=== PATIENT | male | born 1955 | race Caucasian/White ===

== ENCOUNTER 2020-02-16 09:00 | Outpatient (CLI) | payer MEDICARE, SELFPAY ==
--- NOTE | 2020-02-16 09:22 | NMCV_ITS ---
NM stefan perf SPECT r/s* [id number] Kike Rios Age: 64 Gender: M : 1955 Exam Date: 02/16/2020 09:22 Ordering Phys: Elsi Ortiz MD ([email or web address]) Technologist: DARLEEN Bauer Exam Location: [facility] Indications: CARDIOMYOPATHY STRESS TEST Please see separate stress test report in [facility] for full findings IMAGE PROTOCOL Rest/Stress 1 Lexiscan Day Radiopharmaceutical Dose (mCi) Administration Site Administered by Rest: Tc-99m 10.2 IV DARLEEN Zhang Sestamibi Stress:Tc-99m 32.5 IV DARLEEN Zhang Sestamibi Rest: 16-Feb-2020 60 Discovery 630 Stress: 16-Feb-2020 30 Discovery 630 0.4mg Lexiscan. Images obtained in supine and prone position. SPECT RESULTS Technical Quality: Excellent Raw Data Analysis: Normal Image Corrections: No attenuation or motion correction applied Summed Stress Score: 39 Summed Rest Score: 40 Summed Difference Score: 1 PERFUSION FINDINGS Large sized perfusion abnormality of moderate to severe severity of mid to apical anterior, septal, mid to apical lateral and apical nichols on rest and stress images. FUNCTIONAL RESULTS (calculated via Gated SPECT) Stress Image LV EF (%): 23 Stress EDV (mL):295 TID: 1.03 Stress ESV (mL):228 FUNCTIONAL FINDINGS: The left ventricle is dilated. Transient Ischemia Dilatation of 1. There is severely reduced left ventricular global systolic function. The left ventricular ejection fraction is severely reduced with a value of 23%. Severe hypokinesis of mid to apical anterior, entire septal, apical inferior, apical lateral and apical nichols. Severely increased end-diastolic and end-systolic volumes. IMPRESSIONS 1. Large sized fixed perfusion abnormality of moderate to severe severity of mid to apical anterior, septal, mid to apical lateral and apical nichols. This is suggestive of myocardial infarction or scarring in multivessel territory (left anterior descending, circumflex and right coronary artery). 2. The left ventricular ejection fraction is severely reduced with a value of 23%. 3. Severe hypokinesis of mid to apical anterior, entire septal, apical inferior, apical lateral and apical nichols. 4. No coronary ischemia based on the study. 5. These findings are compatible with an ischemic cardiomyopathy. Elsi Ortiz MD (Electronically Signed) Final Date: 16 Feb 2020 13:51 S
--- NOTE | 2020-02-16 09:22 | ECG_ITS ---
NAME OF STUDY: LEXISCAN SESTAMIBI STRESS TEST INDICATION: Chest Pain PROCEDURE: At the baseline, the blood pressure was 103/68 mmHg, oxygen saturation 93% with a heart rate of 49 bpm. The electrocardiogram showed sinus bradycardia, normal axis and intraventricular conduction delay. ST and T wave changes in anterior leads. The Lexiscan was infused over a period of 20 seconds. A total of 0.4 milligrams of Lexiscan was infused. The stress phase was continued for a total of 5 minutes. Heart rate at the end of the stress phase was 71 bpm, oxygen saturation 98% with a blood pressure 110/65 mmHg. The EKG at the peak infusion revealed sinus rhythm with no significant ST-T wave changes. Sestamibi was injected 20 seconds after the Lexiscan infusion. Blood pressure at the end of the recovery phase was 118/72 mmHg, oxygen saturation 96% with a heart rate of 71 beats per minute. CONCLUSION: 1. No significant EKG changes with the LexiScan infusion. 2. No LexiScan induced chest pain or cardiac arrhythmia. 3. Normal blood pressure and heart rate response. 4. Sestamibi/sestamibi perfusion scan pending; see separate report. Electronically Signed On 02-16-2020 13:57:40 CDT by Elsi Ortiz M.D. [id number]
[2020-02-16 09:37] VITALS: BMI 30.6
[2020-02-16] MEDS: regadenoson 0.4 Mg/5 ml Syringe IVP (10:47)
--- NOTE | 2020-02-16 10:50 | SUR.PREOP ---
Patient reports no pain or discomfort prior to the start of the procedure.
[2020-02-16 10:57] VITALS: BP 110/65; PULSE 69
== END 2020-02-16 09:01 | disposition home or self-care (01) ==
PROVIDERS: PCP Family Medicine; Visit Provider Internal Medicine Cardiovascular Disease
DX: I42.9 Cardiomyopathy, unspecified (principal); R06.09 Other forms of dyspnea
CPT/HCPCS: 78452; 93017; A9500; J2785

== ENCOUNTER 2020-03-27 19:02 | Emergency (ER) | payer MEDICARE, SELFPAY ==
--- NOTE | 2020-03-27 19:13 | ECG_ITS ---
[facility] ED Test Date: 2020-03-27 Pat Name: Kike Rios Department: Room: Gender: 0 Dialysis Tech: : 1955 Requested By: Jersey Peter Order Number: [id number] Alka MD: Elsi Ortiz M.D. Measurements Intervals [place] Rate: 67 P: 55 FL: 169 QRS: 57 QRSD: 101 T: 36 QT: 380 QTc: 402 Interpretive Statements SINUS RHYTHM POSSIBLE LEFT ATRIAL ENLARGEMENT [-0.1mV P WAVE IN V1/V2] MODERATE T-WAVE ABNORMALITY, CONSIDER ANTEROLATERAL ISCHEMIA Compared to ECG 11/15/2017 06:05:34 Sinus bradycardia no longer present Ventricular premature complex(es) no longer present Intraventricular conduction delay no longer present T-wave abnormality still present Possible ischemia still present Electronically Signed On 03-29-2020 13:52:17 CDT by Elsi Ortiz M.D. [id number]
--- NOTE | 2020-03-27 19:13 | XR_ITS ---
WS: [id number] XR chest 1V portable [id number] REASON FOR EXAM: cp FINDINGS: Borderline cardiomegaly is again noted. Chest was compared to November 14, 2017. Interstitia l findings are again noted similar to the previous exam and chronic emphysematous changes. The hilum and apices are normal. XR/XR chest 1V portable [id number] IMPRESSION: Chronic emphysematous changes with interstitial findings. Borderline cardiomegaly.
[2020-03-27 19:21] VITALS: BP 105/67; PULSE 63; RESP 20; TEMP 36.9; O2SAT 93; BMI 30.6
[2020-03-27 19:32] LABS: Basophils # 0.2 10^3/uL (0.0-0.1); Basophils % 1.1 %; Hematocrit 46.3 % (42.0-52.0); Mean Corpuscular Volume 92.8 fL (80-94); Nucleated Red Blood Cells % 0 %; Red Blood Count 4.99 10^6/uL (4.1-5.3)
[2020-03-27 19:35] LABS: Eosinophils # 0.5 10^3/uL (0.0-0.8); Eosinophils % 3.6 %; Hemoglobin 14.9 g/dL (11.7-16.6); Lymphocytes # 3.4 10^3/uL (0.8-4.8); Lymphocytes % 23.7 %; Mean Corpuscular HGB Conc 32.2 g/dL (30.0-36.0); Mean Corpuscular Hemoglobin 29.9 pg (28.0-34.0); Mean Platelet Volume 13.3 fL (7.4-10.4); Monocytes # 0.9 10^3/uL (0.2-0.9); Monocytes % 6.4 %; Neutrophils # 9.3 10^3/uL (1.8-7.7); Neutrophils % 64.9 %; Platelet Count 342 10^3/cmm (130-400); Red Cell Distribution Width 14.5 % (12.1-15.1); White Blood Count 14.3 10^3/uL (4.0-10.0)
--- NOTE | 2020-03-27 19:38 | ED_ITS ---
HPI - Chest Pain General: Chief Complaint: Chest Pain Stated Complaint: CHEST PAIN Time Seen by Provider: 03/27/20 19:07 Source: patient and EMS Mode of arrival: EMS Limitations: no limitations History of Present Illness: HPI narrative: 64-year-old male has a history of irregular heart rhythms in the past and is scheduled for an AICD next week. Patient states he was outside working today and started getting chest pains along with palpitations. When EMS arrived patient appears to be in V. fib tach and converted after IV started. Patient states that after that his symptoms resolved and he is back to feeling normal. He has no complaints at this time. Denies any worsening or improving factors. Associated symptoms: Reports palpitations; Deny abdominal pain, dyspnea, fever(s), nausea or vomiting Review of Systems Const: Denies: fever(s), chills, body aches or change in appetite Eyes: Denies: blurry vision or eye discomfort ENMT: Denies: throat pain or dental pain Card: Reports: chest pain and palpitations Resp: Denies: dyspnea GI: Denies: abdominal pain, nausea, vomiting or diarrhea : Denies: dysuria Musc: Denies: neck pain or back pain Skin/Breast: Denies: rash Neuro: Denies: headache(s) Psych: Denies: depression Mc/Lymph: Denies: easy bruising All/Imm: Denies: urticaria PFSH ED PFSH: Medical History (Updated 03/27/20 @ 22:02 by Jersey Peter MD) CAD (coronary artery disease) Cardiomyopathy HTN (hypertension) Hyperlipidemia Tachycardia Family History Mother Seizure Social History Smoking and tobacco status: current every day smoker Alcohol intake: never Physical Exam Const: COMMON NORMALS: no acute distress, patient oriented x3 and healthy appearing HENMT: COMMON NORMALS: normocephalic and atraumatic HEAD & SCALP: normocephalic and atraumatic Eye: COMMON NORMALS: Equal, round and reactive pupils present and EOMs intact bilaterally PUPIL: Yes Equal, round and reactive pupils present Neck/C-Spine: COMMON NORMALS: full ROM and supple Chest: COMMONS NORMALS: normal inspection of the chest and normal palpation of entire chest wall Resp: COMMON NORMALS: normal respiratory effort, No retractions, No use of accessory muscles and clear to auscultation bilaterally AUSCULTATION: clear to auscultation bilaterally Cardio: COMMON NORMALS: regular rate, regular rhythm and No murmurs present (Cardio) RATE: regular rate RHYTHM: regular rhythm GI: COMMON NORMALS: Normal to inspection, nondistended, normoactive bowel sounds present, Soft to palpation, non-tender and no masses PALPATION: Yes Soft to palpation Extremity: COMMON NORMALS: normal to inspection and full ROM Neuro: COMMON NORMALS: patient oriented x3, moves all extremities and no focal motor deficits Psych: COMMON NORMALS: mental status grossly normal, Normal thought process present and cooperative THOUGHT PROCESS: Normal thought process present Skin: COMMON NORMALS: no rashes or lesions noted and no wounds GENERAL SKIN EXAM: no rashes or lesions noted Course Vital Signs: Vital signs: Vital Signs Temperature 98.5 F 03/27/20 19:21 Pulse Rate 63 03/27/20 19:21 Respiratory Rate 20 H 03/27/20 19:21 Blood Pressure 105/67 03/27/20 19:21 Pulse Oximetry 93 03/27/20 19:21 MDM - Chest Pain MDM Narrative: Medical decision making narrative: Patient presents here with V. tach noted on rhythm strip from medic also has an elevated troponin for second troponin concerning for NSTEMI. I discussed all this with patient and strongly recommended admission. Patient's olap developer Dr. Samayoa also spoke to patient here. 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 Patient's been pain-free here and rhythm is been normal. He is scheduled for an AICD next we ek. Patient signed out AGAINST MEDICAL ADVICE and I informed him if he has any more pain or changes his mind he is to return. He understands and agrees to this plan. Lab Data: Labs: Lab Results 03/27/20 03/27/20 03/27/20 Range/Units 18:00 18:00 18:00 WBC 14.3 H (4.0-10.0) 10^3/ uL RBC 4.99 (4.1-5.3) 10^6/u L Hgb 14.9 (11.7-16.6) g/dL Hct 46.3 (42.0-52.0) % MCV 92.8 (80-94) fL MCH 29.9 (28.0-34.0) pg MCHC 32.2 (30.0-36.0) g/dL RDW 14.5 (12.1-15.1) % Plt Count 342 (130-400) 10^3/c mm MPV 13.3 H (7.4-10.4) fL Neut % (Auto) 64.9 % Lymph % (Auto) 23.7 % [place] % (Auto) 6.4 % Eos % (Auto) 3.6 % Baso % (Auto) 1.1 % Neut # (Auto) 9.3 H (1.8-7.7) 10^3/u L Lymph # (Auto) 3.4 (0.8-4.8) 10^3/u L [place] # (Auto) 0.9 (0.2-0.9) 10^3/u L Eos # (Auto) 0.5 (0.0-0.8) 10^3/u L Baso # (Auto) 0.2 H (0.0-0.1) 10^3/u L Nucleated RBC % (a uto) 0 % Nucleated RBCs # 0.0 /100WBC Sodium 135 L (136-145) mmol/L Potassium 3.9 (3.5-5.1) mmol/L Chloride 102 (98-107) mmol/L Carbon Dioxide 18 L (22-29) mmol/L Anion Gap 18.9 (5-19) BUN 19 (8-23) mg/dL Creatinine 1.5 H (0.7-1.2) mg/dL GFR Calculation 46.8 L (90-130) mL/min Glucose 111 (65-115) mg/dL Calculated Osmolal ity 277 L (285-295) mOsm/k g Calcium 9.8 (8.5-10.5) mg/dL Total Bilirubin 0.6 (0.15-1.2) mg/dL AST 19 (0-40) U/L ALT 15 (0-41) U/L Alkaline Phosphata se 38 L (40-130) IU/L Troponin T Baselin e 10 (0-15) ng/L Troponin T 120 Min kenaitze (0-15) ng/L Delta Troponin T (0-10) ABS# Total Protein 7.3 (6.6-8.7) g/dL Albumin 4.5 (3.5-5.2) g/dL Globulin 2.8 (1.3-4.6) g/dL 03/27/20 Range/Units 20:47 WBC (4.0-10.0) 10^3/ uL RBC (4.1-5.3) 10^6/u L Hgb (11.7-16.6) g/dL Hct (42.0-52.0) % MCV (80-94) fL MCH (28.0-34.0) pg MCHC (30.0-36.0) g/dL RDW (12.1-15.1) % Plt Count (130-400) 10^3/c mm MPV (7.4-10.4) fL Neut % (Auto) % Lymph % (Auto) % [place] % (Auto) % Eos % (Auto) % Baso % (Auto) % Neut # (Auto) (1.8-7.7) 10^3/u L Lymph # (Auto) (0.8-4.8) 10^3/u L [place] # (Auto) (0.2-0.9) 10^3/u L Eos # (Auto) (0.0-0.8) 10^3/u L Baso # (Auto) (0.0-0.1) 10^3/u L Nucleated RBC % (a uto) % Nucleated RBCs # /100WBC Sodium (136-145) mmol/L Potassium (3.5-5.1) mmol/L Chloride (98-107) mmol/L Carbon Dioxide (22-29) mmol/L Anion Gap (5-19) BUN (8-23) mg/dL Creatinine (0.7-1.2) mg/dL GFR Calculation (90-130) mL/min Glucose (65-115) mg/dL Calculated Osmolal ity (285-295) mOsm/k g Calcium (8.5-10.5) mg/dL Total Bilirubin (0.15-1.2) mg/dL AST (0-40) U/L ALT (0-41) U/L Alkaline Phosphata se (40-130) IU/L Troponin T Baselin e (0-15) ng/L Troponin T 120 Min kenaitze 26.63 H (0-15) ng/L Delta Troponin T 16.63 H* (0-10) ABS# Total Protein (6.6-8.7) g/dL Albumin (3.5-5.2) g/dL Globulin (1.3-4.6) g/dL EKG Data^: EKG 1: Attestation: I personally reviewed and interpreted this EKG as follows: EKG interpretation date: 03/27/20 EKG interpretation time: 19:13 Interpretation: nsr hr [address] elevation t wave inversion v3-v5 qrs 101 qtc 395 Discharge Plan Discharge Patient Disposition: Left Against Medical Advice Clinical Impression: Chest pain, Ventricular tachycardia Condition: Stable Prescriptions: No Action clonazepam 1 mg tablet 1 mg PO BID RF: 0 buspirone 15 mg tablet 15 mg PO BID RF: 0 fenofibrate nanocrystallized 145 mg tablet 145 mg PO DAILY RF: 0 esomeprazole magnesium 40 mg capsule,delayed release(DR/EC) 40 mg PO DAILY RF: 0 aspirin [Aspir-Low] 81 mg tablet,delayed release (DR/EC) 81 mg PO DAILY RF: 0 atorvastatin 80 mg tablet 80 mg PO DAILY Qty: 30 RF: 3 clopidogrel 75 mg tablet 75 mg PO DAILY Qty: 30 RF: 3 isosorbide mononitrate 60 mg Tablet Extended Release 24 Hr 60 mg PO QAM RF: 0 metoprolol tartrate 50 mg tablet 25 mg PO BID RF: 0 Referrals: Cesario Mccoy [Primary Care Provider] - Discharge Diet: Advance as tolerated Discharge Activity: Resume usual activity Patient Instructions: Chest Pain (ED) Coding Level of Care Code ED [employer] Fwd Exam Comprehensive
[2020-03-27 19:53] LABS: Alanine Aminotransferase 15 U/L (0-41); Albumin Level 4.5 g/dL (3.5-5.2); Alkaline Phosphatase 38 IU/L (40-130); Anion Gap 18.9 (5-19); Aspartate Amino Transferase 19 U/L (0-40); Blood Urea Nitrogen 19 mg/dL (8-23); Calcium 9.8 mg/dL (8.5-10.5); Carbon Dioxide 18 mmol/L (22-29); Chloride 102 mmol/L (98-107); Globulin 2.8 g/dL (1.3-4.6); Glomerular Filtration Rate 46.8 mL/min (90-130); Glucose 111 mg/dL (65-115); Osmolality Calculated 277 mOsm/kg (285-295); Potassium 3.9 mmol/L (3.5-5.1); Sodium 135 mmol/L (136-145); Total Bilirubin 0.6 mg/dL (0.15-1.2); Total Protein 7.3 g/dL (6.6-8.7)
[2020-03-27 19:55] LABS: Troponin(5th) Baseline 10 ng/L (0-15)
[2020-03-27 20:01] LABS: Slide Review Slide Review Perform
--- NOTE | 2020-03-27 21:13 | ECG_ITS ---
[facility] ED Test Date: 2020-03-27 Pat Name: Kike Rios Department: Room: Gender: 0 Manager Hospital: : 1955 Requested By: Jersey Peter Order Number: [id number] Alka MD: Elsi Ortiz M.D. Measurements Intervals [place] Rate: 57 P: 56 PA: 181 QRS: 60 QRSD: 91 T: 79 QT: 412 QTc: 403 Interpretive Statements SINUS BRADYCARDIA ST DEVIATION AND MODERATE T-WAVE ABNORMALITY, CONSIDER ANTERIOR ISCHEMIA [-0.1+ mV T WAVE IN V3/V4] Compared to ECG 11/15/2017 06:05:34 Ventricular premature complex(es) no longer present Intraventricular conduction delay no longer present T-wave abnormality still present Possible ischemia still present Electronically Signed On 03-29-2020 14:18:14 CDT by Elsi Ortiz M.D. [id number]
[2020-03-27 21:34] LABS: Troponin 5 2HR 26.63 ng/L (0-15)
[2020-03-27 21:35] LABS: Troponin 5 2HR Delta 16.63 ABS# (0-10)
--- NOTE | 2020-03-27 22:16 | PC.NURSE ---
During pt rounding, pt states he wants to go home . notified, confirmed pt will be leaving AMA. Pt informed his troponin levels have increased and the significance of elevated levels leading up to disability or . Pt A&Ox3. Acknowledged understanding of risks of leaving vs staying. AMA form signed by pt and witnessed by staff. IV's removed. Pt ambulated out of dept without further difficulties or complaints.
== END 2020-03-27 22:31 | disposition left against medical advice (07) ==
PROVIDERS: Emergency Provider Emergency Medicine; PCP Family Medicine
DX: R07.9 Chest pain, unspecified (principal); I47.2 Ventricular tachycardia; Z79.02 Long term (current) use of antithrombotics/antiplatelets; Z79.82 Long term (current) use of aspirin; Z53.21 Procedure and treatment not carried out due to patient leaving prior to being seen by health care provider; I25.10 Atherosclerotic heart disease of native coronary artery without angina pectoris; I10 Essential (primary) hypertension; E78.5 Hyperlipidemia, unspecified; F17.210 Nicotine dependence, cigarettes, uncomplicated
CPT/HCPCS: 12345; 36415; 71045; 80053; 84484; 85025; 93005; 99282; 99284

== ENCOUNTER 2020-04-10 09:47 | Observation (INO) | payer MEDICARE, SELFPAY ==
[2020-04-07 13:05] VITALS: BMI 29.9
[2020-04-10] VITALS (12 sets, daily range): BP systolic 96–131; BP diastolic 66–81; PULSE 55–65; RESP 14–21; TEMP 36.2–37; O2SAT 92–99
--- NOTE | 2020-04-10 | XRR_ITS ---
PROCEDURE INFORMATION: Exam: XR Chest, 1 View Exam date and time: 04/10/2020 4:39 PM Age: 64 years old Clinical indication: Condition or disease; Cardiac pacemaker adjustment and management; Prior surgery; Surgery date: Post-operative (0-2 days); Surgery type: Pacer insertion; Additional info: Post pacer insertion TECHNIQUE: Imaging protocol: XR of the chest Views: 1 view. COMPARISON: CR XR chest 1V portable [id number] 04/10/2020 8:11 AM FINDINGS: Tubes, catheters and devices: Dual lead left subclavian pacemaker in place. Lungs: Minor atelectasis both lung bases. Pleural space: Unremarkable. No pleural effusion. No pneumothorax. Heart/Mediastinum: Unremarkable. No cardiomegaly. Bones/joints: Unremarkable. XR/XR chest 1V portable [id number] IMPRESSION: Left subclavian pacemaker in place. Minor atelectasis both lung bases.
--- NOTE | 2020-04-10 | SCC_ITS ---
Procedure Done: Dual-lead defibrillator implantation 62.9 seconds of fluoroscopic guidance, for a cumulative dose of 14.90 mGy, was provided to Dr. Wang by the radiology department. C-arm images of the chest were saved for the patient's permanent record. M[facility] ST[facility] CHILDREN'S HOSPITALRenate
--- NOTE | 2020-04-10 06:31 | P.HP_ITS ---
Providers/Chief Complaint Admitting Physician: Kathleen Primary Care Provider: Cesario Mccoy History of Present Illness Kike Rios is a 64 year old male with known severe cardiomyopathy with ejection fraction of 23%. He has a past history of coronary artery disease noted history of chronic smoking and emphysema. He has been previously evaluated by Dr. Ortiz and ICD recommendation has been made. He was seen in the emergency department on March 27 after developing chest pain and near syncope at home and transferred by EMS. He was found to be in ventricular fib/tachycardia and converted spontaneously. He refused admission and left AGAINST MEDICAL ADVICE. We plan for AICD implantation today. Review of Systems Const: Denies: fever(s), chills, change in appetite, change in weight, fatigue or night sweats Eyes: Denies: change in vision or blurry vision ENMT: Denies: odynophagia or hoarseness Card: Reports: chest pain, palpitations, irregular heart rhythm and dyspnea on exertion; Denies: edema Resp: Reports: dyspnea; Denies: productive cough GI: Denies: abdominal pain, nausea, vomiting, dysphagia, heartburn or change in bowel habits : Denies: difficulty urinating, dysuria, urinary frequency, urinary urgency or urinary hesitancy Musc: Denies: extremity pain or extremity swelling Skin/Breast: Denies: rash Neuro: Denies: headache(s), numbness in extremities, weakness in extremities or sensory changes Psych: Denies: anxiety, depression or change in appetite Endo: Denies: polyuria, polydipsia or cold intolerance Mc/Lymph: Denies: easy bruising, easy bleeding, petechiae or enlarged lymph nodes Medications/Allergies Home Medications Medication Instructions Recorded Confirmed Last Taken Type aspirin 81 mg tablet,delayed 81 mg PO DAILY 12/30/19 04/07/20 04/05/20 History release buspirone 15 mg tablet 15 mg PO BID 12/30/19 04/07/20 Unknown History clonazepam 1 mg tablet 1 mg PO BID 12/30/19 04/07/20 Unknown History esomeprazole magnesium 40 mg 40 mg PO DAILY 12/30/19 04/07/20 Unknown History capsule,delayed release fenofibrate nanocrystallized 145 145 mg PO DAILY 12/30/19 04/07/20 Unknown History mg tablet atorvastatin 80 mg tablet 80 mg PO DAILY #30 tab 12/31/19 04/07/20 Unknown Rx clopidogrel 75 mg tablet 75 mg PO DAILY #30 tab 12/31/19 04/07/20 04/04/20 Rx isosorbide mononitrate 60 mg PO QAM 03/27/20 04/07/20 Unknown History metoprolol tartrate 25 mg PO BID 03/27/20 04/07/20 Unknown History Allergies Allergy/AdvReac Type Severity Reaction Status Date / Time influenza virus vaccine, Allergy u Verified 12/30/19 14:48 specific morphine Allergy Unknown Verified 04/07/20 13:03 Penicillins Allergy Unknown Verified 12/30/19 14:48 codeine AdvReac ADR-Chest Verified 12/30/19 14:48 Pain PFSH Acute PFSH: Medical History (Updated 04/10/20 @ 06:35 by Stephan Wang MD) CAD (coronary artery disease) Cardiomyopathy HTN (hypertension) Hyperlipidemia Ischemic cardiomyopathy Tachycardia Family History Mother Seizure Social History Smoking and tobacco status: current every day smoker Alcohol intake: never Physical Exam Const: COMMON NORMALS: patient oriented x3 and alert ORIENTATION/CONSCIOUSNESS: Yes oriented to person, Yes oriented to place and Yes oriented to time HENMT: COMMON NORMALS: normocephalic HEAD & SCALP: normocephalic and cranial bruits Neck/C-Spine: COMMON NORMALS: full ROM, supple, no JVD and No carotid bruits GENERAL: Yes trachea midline CERVICAL SPINE: Yes cervical ROM normal Chest: COMMONS NORMALS: normal inspection of the chest and normal palpation of entire chest wall Resp: COMMON NORMALS: normal respiratory effort, No use of accessory muscles, clear to auscultation bilaterally and percussion normal EFFORT & INSPECTION: Yes able to speak in complete sentences and Yes symmetric chest movement AUSCULTATION: clear to auscultation bilaterally PERCUSSION: percussion normal Cardio: COMMON NORMALS: no JVD, regular rate, regular rhythm, S1 normal heart sound present, S2 normal heart sound present, No gallops present (Cardio), No murmurs present (Cardio) and No rub (Cardio) JUGULAR VENOUS DISTENTION: no JVD RATE: regular rate RHYTHM: regular rhythm HEART SOUNDS: S1 normal heart sound present and S2 normal heart sound present PERIPHERAL PULSES: radial pulses present positive bilateral 2+ Extremity: COMMON NORMALS: no clubbing, cyanosis or edema Neuro: COMMON NORMALS: patient oriented x3, no focal motor deficits and no sensory deficits noted SENSORIUM/ORIENTATION: Yes alert, Yes oriented to person, Yes oriented to place and Yes oriented to time GAIT: Yes Normal gait present A&P Assessment and plan (1) Ischemic cardiomyopathy: 64-year-old gentleman with severe ischemic cardiomyopathy and ejection fraction of 23% as well as documented ventricular arrhythmia. AICD implantation been recommended. Rationale was carefully discussed. Details and risks of the procedure were carefully and frankly discussed. Risks reviewed include the possibility of , stroke, heart attack, major bleeding, infection which may require explantation of the device, pneumonia, pneumothorax requiring chest tube, migration of the leads requiring early or delayed revision, organ failure, failure to benefit, prolonged hospital stay, pain after the procedure, need for further procedures, inability to complete the procedure, and possible need for long-term followup. All questions were answered. Appropriate consents have been provided for review and signature. Status: Acute Attestations Medical Necessity Statement*: Severe ischemic cardiomyopathy with ventricular arrhythmias Time Spent in Patient Care: 16 - 35 minutes Coding Level of Care Code New Pt Acute Optical Laboratory Technician for Chg Fwd Patient Type New History Detailed Exam Comprehensive Medical Decision Making Moderate Complexity Diagnoses Ischemic cardiomyopathy I25.5 Time Spent (min) 35
--- NOTE | 2020-04-10 07:27 | XR_ITS ---
WS: [id number] CHEST XRAY TECHNIQUE: Portable chest. CLINICAL INFORMATION: Preop for AICD implantation COMPARISON: March 27, 2020 FINDINGS: Heart: Cardiomegaly. Lungs: Chronic emphysematous changes. No acute pulmonary infiltrates. No focal pneumonia. Bones: Normal visualized bony structures. XR/XR chest 1V portable [id number] IMPRESSION: Cardiomegaly. Otherwise unremarkable for preoperative purposes.
--- NOTE | 2020-04-10 07:27 | SC_ITS ---
WS: [id number] INTRAOPERATIVE TECHNIQUE: 3 Spot fluoroscopic images for intraoperative purposes. FLUOROSCOPY TIME: 62.9 seconds CLINICAL INFORMATION: AICD implantation COMPARISON: None. FINDINGS: Interval placement of AICD. No visualized pneumothorax. SC/C-arm FL for Pacemaker IMPRESSION: Images obtained for intraoperative purposes.
--- NOTE | 2020-04-10 08:03 | P.ANESASSM_ITS ---
Pre-Anesthetic Assessment Pre-Anesthetic Assessment: Height/Weight: Height 1.91 m Weight 108.862 kg Temp Pulse Resp BP Pulse Ox 97.2 F L 55 L 16 115/76 92 04/10/20 07:36 04/10/20 07:36 04/10/20 07:36 04/10/20 07:36 04/10/20 07:36 Preop Diagnosis: Cardiomyopathy Proposed Procedure: Operation Date: 04/10/20 08:40 Proposed Procedures p Defibrillator Placement(Not Applicable) - Stephan Wang MD Familial anesthetic complications: None Was Beta Tony taken within 24 hours: Yes Last intake: Intake Last Liquid Date 04/09/20 Last Liquid Time 19:00 Last Solid Date 04/09/20 Last Solid Time 19:00 Social: Social History: Tobacco and No alcohol Exam: Pre-Anes Outpt Exam: alert, oriented x 3, clear to auscultation bilaterally and regular rate & rhythm Airway: Cervical ROM: WNL MP: 4 Dentition: False Pulmonary: Comments: chronic bronchitis CV/HEM: CV/HEM: Afib, Arrythmia (Plavix - last took friday), CAD, HTN and RI Comments: Ischemic cardiomyopathy : : None reported Hepatic: Hepatic: None reported Metabolic: Metabolic: Hyperlipidemia Musc/skel: Musc/skel: None reported Neuropsych: Neuropsych: TIA (years ago (R paralysis and aphasia)) Anesthetic Plan: ASA status: 4 Anesthesia: MAC Risk of > 500 ml blood l oss (7ml/kg in children): No PFSH Anesthesia PFSH: Medical History (Updated 04/10/20 @ 06:35 by Stephan Wang MD) CAD (coronary artery disease) Cardiomyopathy HTN (hypertension) Hyperlipidemia Ischemic cardiomyopathy Tachycardia Family History Mother Seizure Social History Smoking and tobacco status: current every day smoker Alcohol intake: never Data Anesthesia Cardiac Studies: No Data to Display
[2020-04-10] MEDS: sodium chloride 0.9% 1,000 ML 30 ML IV (08:19)
[2020-04-10 08:23] LABS: Add Urine Microscopic? NO
[2020-04-10] MEDS: vancomycin 1,000 MG in sodium chloride 0.9% 250 ML 250 MG IV (08:23)
[2020-04-10 08:34] LABS: Basophils # 0.1 10^3/uL (0.0-0.1); Basophils % 0.8 %; Eosinophils # 0.6 10^3/uL (0.0-0.8); Eosinophils % 4.8 %; Hematocrit 44.9 % (42.0-52.0); Hemoglobin 14.8 g/dL (11.7-16.6); Lymphocytes # 3.2 10^3/uL (0.8-4.8); Lymphocytes % 26.9 %; Mean Corpuscular Hemoglobin 30.5 pg (28.0-34.0); Mean Corpuscular Volume 92.6 fL (80-94); Mean Platelet Volume 12.7 fL (7.4-10.4); Monocytes # 0.9 10^3/uL (0.2-0.9); Monocytes % 7.7 %; Neutrophils % 59.5 %; Nucleated Red Blood Cells % 0 %; Platelet Count 290 10^3/cmm (130-400); Red Blood Count 4.85 10^6/uL (4.1-5.3); White Blood Count 11.8 10^3/uL (4.0-10.0)
[2020-04-10 08:36] LABS: INR 1.02 (0.8-1.2)
[2020-04-10 08:43] LABS: Anion Gap 17.2 (5-19); Blood Urea Nitrogen 21 mg/dL (8-23); Calcium 9.8 mg/dL (8.5-10.5); Carbon Dioxide 21 mmol/L (22-29); Chloride 104 mmol/L (98-107); Glomerular Filtration Rate 55.2 mL/min (90-130); Glucose 111 mg/dL (65-115); Osmolality Calculated 283 mOsm/kg (285-295); Potassium 4.2 mmol/L (3.5-5.1); Sodium 138 mmol/L (136-145)
[2020-04-10] MEDS: vancomycin 1,000 MG SDV 1000 MG IRRIGATION (08:56)
[2020-04-10] MEDS: lidocaine 1% INJ 20 mL SUBCUT (08:56)
[2020-04-10 09:18] LABS: Bilirubin Urine Neg (NEGATIVE); Blood Urine Neg (Negative); Glucose Urine UA Norm (Normal); Ketones Urine Negative (Negative); Leukocyte Esterase Urine Negative (Negative); Nitrate Urine Negative (Negative); Protein Urine Neg (Negative); Urine Appearance Clear (CLEAR); Urine Color Straw (Yellow); Urobilinogen Urine Norm (Negative); pH Urine 5 (5-7)
--- NOTE | 2020-04-10 10:10 | PM.OP ---
Operative Report Date of procedure: April 10, 2020 Pre-op Diagnosis: Cardiomyopathy Post-op diagnosis: same Procedure Done: Dual-lead defibrillator implantation Pathology: none sent Surgeon: Stephan Wang Anesthesia: MAC and Local (12 cc 1% lidocaine) Estimated blood loss (mL): 20 Complications: None Findings: Fluoroscopy utilized for guidewire, dilator, trocar, and subsequent lead positioning Condition: stable Disposition: floor Brief History: 64-year-old gentleman with ischemic cardiopathy with ejection fraction of 23% by most recent imaging study. Also history of ventricular arrhythmia. Defibrillator plantation been recommended by his color shop helper, Dr. Ortiz. Details risk of procedure again carefully and frankly discussed. Proper consents have been reviewed and signed. Procedure: Procedure: Mr. Rios was taken to the OR suite and placed in the supine position over a shoulder roll. He received conscious sedation with continuous anesthesia monitoring by. He entire chest was sterilely prepped and draped. 1% lidocaine was infiltrated in the left subclavicular region. While in Trendelenburg position, utilizing modified seldinger technique, 2a guidewires was placed in the left subclavian vein. This was confirmed in position by fluoroscopy. Next, after infiltration with lidocaine, a subcutaneous pocket was created beginning from the exit point of the guidewire and extending laterally and inferiorly. Cautery was utilized to create the pocket just above the pectoralis musculature. Hemostasis was confirmed. An antibiotic-soaked sponge was placed in the wound. A dilator and tear-away sheath was placed over the guidewire and advanced under fluoroscopy. Guidewire and dilator were removed. Next using a combination of curved and straight stylettes, the right ventricular lead was placed in position by fluoroscopy. The distal screw was extended. Interrogation was then performed confirming appropriate parameters. The tear-away sheath was then removed and the ventricular lead was sewn to the floor of the subcutaneous pocket. Next, utilizing similar technique, after placement of the second sheath, atrial lead was positioned into the right atrium utilizing fluoroscopy. Distal screw was advanced and interrogation confirmed good capture and appropriate thresholds. Tear-away sheath was removed and the lead was secured to the floor of the subcutaneous pocket. Defibrillating generator was brought into the field, and after confirmation of hemostasis in the subcutaneous pocket, the leads were connected to the generator with appropriate capture. The entire system was interrogated by fluoroscopy. Leads and generator were secured in the pocket. Sponge and needle count was correct. The wound was then closed in 2 layers of 3-0 Vicryl suture. Skin was reapproximated in a subcuticular manner with 4-0 Monocryl suture. A pressure dressing was applied. The left arm was placed in a sling. Mr. Rios had equal breath sounds bilaterally. He was then transferred to the PACU, where chest x-ray is currently pending. I did pre parole counseling aide with his sister at the completion of the procedure. Following are the specifics of this system: Right ventricular lead is 62 cm and model [id number]. Serial number [id number] Right atrial lead is 52 cm. Model [id number] Atrial lead had a sensing of 2.2 with an impedance of 418. Threshold was 0.9v. Ventricular lead had sensing of 14.1 mV with an impedance of 508 ohms. Threshold was 0.3 V Generator: Model # [id number] Serial #:[id number]
[2020-04-10 11:59] LABS: Glucose Point of Care 93 mg/dL (70-110)
--- NOTE | 2020-04-10 15:48 | PC.NURSE ---
Patient resting in bed is semi fowlers position. Immobilizer in place. Patient is cooperative with staff and cares.
[2020-04-10 16:20] LABS: Glucose Point of Care 120 mg/dL (70-110)
[2020-04-10] MEDS: sodium chloride 0.9% 1,000 ML 75 ML IV (16:23)
[2020-04-10] MEDS: metoprolol tartrate 50 mg Tablet 25 MG PO (17:26)
[2020-04-10] MEDS: CLONazepam 1 mg Tablet PO (17:26)
[2020-04-10 21:14] LABS: Glucose Point of Care 115 mg/dL (70-110)
[2020-04-11 03:53] VITALS: BP 128/82; PULSE 60; RESP 21; TEMP 36.4; O2SAT 97
[2020-04-11 03:54] VITALS: PULSE 60; O2SAT 95
[2020-04-11] MEDS: isosorbide mononitrate ER 60 mg Tablet PO (05:32)
--- NOTE | 2020-04-11 06:00 | ECG_ITS ---
[facility] ED Test Date: 2020-04-11 Pat Name: Kike Rios Department: Room: 105 Gender: Male Tool Programmer: THANIA CAMPOS: 1955 Requested By: Stephan Wang Order Number: [id number] Alka MD: Digna Linder M.D. Measurements Intervals [place] Rate: 60 P: 241 MS: 211 QRS: 67 QRSD: 111 T: 46 QT: 409 QTc: 409 Interpretive Statements ELECTRONIC ATRIAL PACEMAKER MODERATE INTRAVENTRICULAR CONDUCTION DELAY [110+ ms QRS DURATION] MODERATE T-WAVE ABNORMALITY, CONSIDER ANTEROLATERAL ISCHEMIA [-0.1+ mV T WAVE IN V3-V6] Compared to ECG 03/27/2020 20:58:01 Intraventricular conduction delay now present Sinus bradycardia no longer present T-wave abnormality still present Possible ischemia still present Electronically Signed On 04-11-2020 19:34:03 CDT by Digna Linder M.D. [id number]
[2020-04-11 06:34] LABS: Glucose Point of Care 97 mg/dL (70-110)
--- NOTE | 2020-04-11 06:37 | P.DS_ITS ---
Discharge Providers Date of Admission: 04/10/20 09:47 Date of Discharge: April 11, 2020 Attending Provider at Admission: Stephan Wang MD Attending Provider at Discharge: Stephan Wang MD Primary Care Provider: Cesario Mccoy Diagnoses at Discharge Discharge Diagnosis (1) Ischemic cardiomyopathy: Status: Acute Reason for Visit Reason for Visit: Brief History: 64-year-old gentleman with ischemic cardiomyopathy with an ejection fraction of 23%. Defibrillator implantation as been recommended by cardiology. Hospital Course Discharge Summary: Mr. Rios was electively admitted on April 10 and und erwent 2-lead defibrillator implantation. He convalesced in cardiac stepdown overnight with minimal discomfort and with no substantial arrhythmias. Surgical dressing was removed this morning. Incision is clean and dry. Minimal swelling. Interrogation has been completed this morning without abnormalities noted. He will be discharged home today in stable condition. He will follow-up at heart care services at the pacemaker clinic on April 21. Physical Exam Chest: COMMONS NORMALS: normal inspection of the chest (Incision is clean and dry. No substantial swelling. Incision is well approximated. Minimal tenderness.) Discharge Data Data Completed and Pending: Completed Studies During Hospitalization Category Date Time Status XR chest 1V james ble [id number] Routine Exams 04/10/20 Completed XR chest 1V james ble [id number] Routine Exams 04/10/20 07:27 Completed Labs from last 24 hours 04/11/20 04/10/20 04/10/20 06:24 21:08 15:50 WBC RBC Hgb Hct MCV MCH MCHC RDW Plt Count MPV Neut % (Auto) Lymph % (Auto) Isabella % (Auto) Eos % (Auto) Baso % (Auto) Neut # (Auto) Lymph # (Auto) Isabella # (Auto) Eos # (Auto) Baso # (Auto) Nucleated RBC % (a uto) Nucleated RBCs # PT INR Sodium Potassium Chloride Carbon Dioxide Anion Gap BUN Creatinine GFR Calculation Glucose POC Glucose 97 115 120 Calculated Osmolal ity Calcium Urine Color Urine Appearance Urine pH Ur Specific Gravit y Urine Protein Urine Glucose (UA) Urine Ketones Urine Blood Urine Nitrate Urine Bilirubin Urine Urobilinogen Ur Leukocyte [place] ase 04/10/20 04/10/20 04/10/20 11:49 08:00 08:00 WBC RBC Hgb Hct MCV MCH MCHC RDW Plt Count MPV Neut % (Auto) Lymph % (Auto) Isabella % (Auto) Eos % (Auto) Baso % (Auto) Neut # (Auto) Lymph # (Auto) Isabella # (Auto) Eos # (Auto) Baso # (Auto) Nucleated RBC % (a uto) Nucleated RBCs # PT 13.70 H INR 1.02 Sodium 138 Potassium 4.2 Chloride 104 Carbon Dioxide 21 L Anion Gap 17.2 BUN 21 Creatinine 1.3 H GFR Calculation 55.2 L Glucose 111 POC Glucose 93 Calculated Osmolal ity 283 L Calcium 9.8 Urine Color Urine Appearance Urine pH Ur Specific Gravit y Urine Protein Urine Glucose (UA) Urine Ketones Urine Blood Urine Nitrate Urine Bilirubin Urine Urobilinogen Ur Leukocyte [place] ase 04/10/20 04/10/20 08:00 07:54 WBC 11.8 H RBC 4.85 Hgb 14.8 Hct 44.9 MCV 92.6 MCH 30.5 MCHC 33.0 RDW 14.0 Plt Count 290 MPV 12.7 H Neut % (Auto) 59.5 Lymph % (Auto) 26.9 Isabella % (Auto) 7.7 Eos % (Auto) 4.8 Baso % (Auto) 0.8 Neut # (Auto) 7.0 Lymph # (Auto) 3.2 Isabella # (Auto) 0.9 Eos # (Auto) 0.6 Baso # (Auto) 0.1 Nucleated RBC % (a uto) 0 Nucleated RBCs # 0.0 PT INR Sodium Potassium Chloride Carbon Dioxide Anion Gap BUN Creatinine GFR Calculation Glucose POC Glucose Calculated Osmolal ity Calcium Urine Color Straw Urine Appearance Clear Urine pH 5 Ur Specific Gravit y 1.020 Urine Protein Neg Urine Glucose (UA) Norm Urine Ketones Negative Urine Blood Neg Urine Nitrate Negative Urine Bilirubin Neg Urine Urobilinogen Norm Ur Leukocyte Virginia ase Negative Vitals: Last Vital Signs Temp 97.6 F 04/11/20 03:53 Pulse 60 04/11/20 03:54 Resp 21 H 04/11/20 03:53 BP 128/82 04/11/20 03:53 Pulse Ox 95 04/11/20 03:54 Discharge Plan Discharge Patient Disposition: Home, Self-Care Condition: Stable Prescriptions: Continued clonazepam 1 mg tablet 1 mg PO BID RF: 0 buspirone 15 mg tablet 15 mg PO BID RF: 0 fenofibrate nanocrystallized 145 mg tablet 145 mg PO DAILY RF: 0 esomeprazole magnesium 40 mg capsule,delayed release(DR/EC) 40 mg PO DAILY RF: 0 aspirin [Aspir-Low] 81 mg tablet,delayed release (DR/EC) 81 mg PO DAILY RF: 0 atorvastatin 80 mg tablet 80 mg PO DAILY Qty: 30 RF: 3 clopidogrel 75 mg tablet 75 mg PO DAILY Qty: 30 RF: 3 isosorbide mononitrate 60 mg Tablet Extended Release 24 Hr 60 mg PO QAM RF: 0 metoprolol tartrate 50 mg tablet 25 mg PO BID RF: 0 Discharge Orders: Discharge Order (Routine); Ordered 04/11/20 Ordered By: Stephan Wang Referrals: [facility]ART [facility]ARE SERVICES [Provider Group] - 04/21/20 (Pacemaker clinic) Discharge Diet: Usual diet Discharge Activity: Limit activity as instructed Activity Restrictions/Additional Instructions: May remove incision bandage tomorrow May begin daily showers on No swimming or tub baths x2 weeks Do not raise left arm above eye level for 1 week Wear immobilizer at night while sleeping if there is a tendency to raise arms above head Report swelling, incision redness, increasing pain, or fever/drainage. May resume Plavix and aspirin tomorrow Discharge Attestations Time Spent in Discharge Care*: less than 30 min Specific Discharge Activities: Specific discharge activities: educating moreno ent, discussing with binder caser/social workers/dc planners, documenting/other paperwork and evaluating patient/reviewing data Status at Discharge: Cognitive status at discharge: cognitively intact , Behavioral status at discharge: cooperative , Functional status at discharge: independent ambulation Overall status at discharge: patient is progressing back to baseline Quality Metrics Clinical Quality Measures During this hospital stay, did patient experience: None Coding Level of Care Code Acute Research Hydraulic Engineer for [place] Fwd Diagnoses Ischemic cardiomyopathy I25.5
[2020-04-11] MEDS: metoprolol tartrate 50 mg Tablet 25 MG PO (08:16)
[2020-04-11] MEDS: atorvastatin 40 mg Tablet 80 MG PO (08:17)
[2020-04-11] MEDS: pantoprazole DR 40 mg Tablet PO (08:17)
[2020-04-11] MEDS: CLONazepam 1 mg Tablet PO (08:17)
[2020-04-11] MEDS: vancomycin 1,000 MG in sodium chloride 0.9% 250 ML 250 MG IV (08:18)
--- NOTE | 2020-04-11 10:53 | PC.CHAP ---
Pastoral Care Encounter/Spiritual Assessment Type of Contact [] Declined shirt bander visit [] Patient/Family/Request visit [] Outpatient visit [] Follow-up visit [] Physician referral [] Code/Alert [X] Routine visit [] Staff referral [] Actively dying [] Patient sleeping [] Family support [] [] Out of room [] Palliative care [] [X] Receiving care in room [] Pre-surgical visit [] Trauma [] Long length of stay [] ICU visit [] Other: Relational/Emotional Strength [X] Patient feels connected with others/family/visitors/staff [] Distress [] Loneliness/isolation [] Abandonment Spirituality of Patient [X] Person of Kasie [] Attends Baptist of their [place]ie [X] Believes in Prayer [] Reads Bible or Evangelical materials [] There are Spiritual issues to be addressed Grid Molder Interventions [X] Prayer [X] Active listening [X] Non-anxious presence [X] Spiritual/emotional support [] Crisis/trauma care [X] Spiritual counseling [] Bereavement support [] Provided bereavement packet [] Provided Bible/devotional materials [] Provided toy/stuffed animal, coloring book to patient or family member [] Provided Communion [] Anointing/[place] [] Salvation [X] Completed spiritual assessment [] Other: Impact on Illness or Injury [] Angry [] Fearful [] Anxious [] Often cries [] Exhaustion [] Unable to work [] Unable to attend mormon [] Unable to walk/stand [] Unable to read [] Unable to drive [] Unable to eat/drink [] Unable to sleep [] Unable to be with family [] Patient intubated [] Other: Summary HAD A A PACE-MAKER & AFEBUATOR, yesterday, feels good has a good attitude, getting ready to go home. Time spent with patient 10 mins
[2020-04-11 11:01] VITALS: BP 112/71; PULSE 60; RESP 17; TEMP 36.6; O2SAT 94
[2020-04-11 11:22] VITALS: BP 112/71; PULSE 60; RESP 17; TEMP 36.6; O2SAT 94
--- NOTE | 2020-04-11 12:13 | ANE.PACU2 ---
Inpatient post-anesthesia follow up: Airway intact: Yes Vital signs: Temperature 97.8 F Pulse Rate 60 Respiratory Rate 17 Blood Pressure 112/71 Pulse Oximetry 94 Oxygen Delivery Me thod [Rate & Nasal Cannula Delivery Changed T o] Oxygen Delivery Me thod [ Nasal Cannula Current Rate & Del lindsay] Oxygen Delivery Me thod Room Air Oxygen Flow Rate [ Rate & 1 Delivery Changed T o] Oxygen Flow Rate [ Current Rate 1 & Delivery] Oxygen Flow Rate 2 Fraction of Inspir ed Oxygen Hydration adequate: Yes Nausea and vomiting: No Pain level: 1 Mental status: Baseline
--- NOTE | 2020-04-12 17:51 | PC.RESP ---
Smoking Cessation information and a schedule of classes sent to patient.
== END 2020-04-11 12:45 | disposition home or self-care (01) ==
LOC: CSU 04-11 06:37
PROVIDERS: Admitting Provider Thoracic Surgery (Cardiothoracic Vascular Surgery); PCP Family Medicine; Visit Provider Thoracic Surgery (Cardiothoracic Vascular Surgery)
PROC: 0JH608Z Insertion of Defibrillator Generator into Chest Subcutaneous Tissue and Fascia, Open Approach (ICD-10-PCS; CPT 33249; principal; 2020-04-10 08:40)
DX: I25.5 Ischemic cardiomyopathy (principal); Z79.82 Long term (current) use of aspirin; I48.91 Unspecified atrial fibrillation; Z79.02 Long term (current) use of antithrombotics/antiplatelets; E78.5 Hyperlipidemia, unspecified; I25.2 Old myocardial infarction; F17.210 Nicotine dependence, cigarettes, uncomplicated
CPT/HCPCS: 33270; 12345; 36415; 36416; 71045; 76000; 80048; 81003; 82962; 85025; 85610; 93005; 97166; C1721; C1777; C1779; G0378; J2001; J2250; J2704; J3010; J3370; J3490; J7030; J7050

== ENCOUNTER → 2021-02-07 09:58 | Outpatient (BNVA) | payer MEDICARE, SELFPAY | PROVIDERS: PCP Family Medicine; Visit Provider Thoracic Surgery (Cardiothoracic Vascular Surgery) | DX: J98.59 Other diseases of mediastinum, not elsewhere classified (principal); Z20.822 Contact with and (suspected) exposure to COVID-19 | CPT/HCPCS: 87635 ==

== ENCOUNTER → 2021-03-21 09:40 | Outpatient (BNVA) | payer MEDICARE, SELFPAY | PROVIDERS: PCP Family Medicine; Visit Provider Thoracic Surgery (Cardiothoracic Vascular Surgery) | DX: R91.8 Other nonspecific abnormal finding of lung field (principal); Z20.822 Contact with and (suspected) exposure to COVID-19 | CPT/HCPCS: 87635 ==

== ENCOUNTER 2021-03-26 06:01 | Day surgery (SDC) | payer MEDICARE, SELFPAY ==
[2021-03-23 14:15] VITALS: BMI 31.6
[2021-03-26] VITALS (13 sets, daily range): BP systolic 99–127; BP diastolic 64–80; PULSE 60–69; RESP 16–22; TEMP 36.1–36.4; O2SAT 89–96
--- NOTE | 2021-03-26 06:05 | ECG_ITS ---
[facility] Test Date: 2021-03-26 Pat Name: Kike Rios Department: Room: Gender: Male Infrastructure Technician: : 1955 Requested By: Stephan Wang Order Number: [id number] Alka MD: Elsi Ortiz M.D. Measurements Intervals [place] Rate: 60 P: 131 TX: 213 QRS: 55 QRSD: 109 T: 55 QT: 412 QTc: 412 Interpretive Statements ELECTRONIC ATRIAL PACEMAKER MODERATE T-WAVE ABNORMALITY, CONSIDER ANTERIOR ISCHEMIA [-0.1+ mV T WAVE IN V3/V4] Compared to ECG 04/11/2020 05:49:57 Intraventricular conduction delay no longer present T-wave abnormality still present Possible ischemia still present Electronically Signed On 03-26-2021 23:00:55 CDT by Elsi Ortiz M.D. [id number]
[2021-03-26] MEDS: sodium chloride 0.9% 1,000 ML 30 ML IV (06:45)
--- NOTE | 2021-03-26 06:46 | P.HP_ITS ---
Providers/Chief Complaint Admitting Physician: Dr. Wang Primary Care Provider: Cesario Mccoy Chief Complaint: Bronchoscopy History of Present Illness Kike Rios is a 65 year old male whom I saw originally in consultation back on November [address] Mckoy for evaluation for raspiness in his breathing for about 6 months. Subsequent investigations included CT scan of the chest on October 10 of last year which revealed moderate grade right perihilar peribronchial vascular soft tissue thickening occluding mild wall thickening of the right main bronchus. He was also noted to have some subcarinal fullness with borderline lymph node enlargement the right paratracheal and AP window spaces. He has a very long history of tobacco use. He has a liver lesions whi ch evaluated on October 26 by ultrasound it was 4.1 x 4.4 x 4.2 cm and was isoechoic. PET scan performed at [facility] on November 13 was very concerning for malignancy with increased activity in the right hilar mass, mediastinal adenopathy, as well as right hepatic liver mass. Ms. Rios describes dyspnea with exertion and decreased appetite. He has no substantial physical discomfort. I saw him on a follow-up visit of December 22 after review of the PET scan and recommended we proceed with plans for bronchoscopy and mediastinoscopy. It has been challenging for him to schedule the surgery due to transportation concerns. We have made arrangements for medical transport and therefore able to schedule the surgery for today. No hemoptysis. No night sweats or fevers. Pertinent past history includes prior defibrillator placement for cardiomyopathy. Review of Systems Const: Reports: change in appetite and fatigue; Denies: fever(s) or night sweats Card: Reports: dyspnea on exertion; Denies: chest pain, irregular heart rhythm or pre-syncope Resp: Reports: dyspnea, non-productive cough and wheezing; Denies: hemoptysis GI: Reports: nausea; Denies: abdominal pain, hematemesis, coffee ground emesis or constipation Neuro: Denies: headache(s) or weakness in extremities Medications/Allergies Home Medications Medication Instructions Recorded Confirmed Last Taken Type aspirin 81 mg tablet,delayed 81 mg PO DAILY 12/30/19 03/26/21 03/23/21 History release buspirone 15 mg tablet 15 mg PO BID 12/30/19 03/26/21 03/25/21 History clonazepam 1 mg tablet 1 mg PO BID 12/30/19 03/26/21 03/25/21 History esomeprazole magnesium 40 mg 40 mg PO DAILY 12/30/19 03/26/21 03/25/21 History capsule,delayed release apixaban 5 mg tablet See Rx Instructions .ROUTE 09/11/20 03/26/21 03/23/21 Rx .COMPLEX #60 tab atorvastatin 80 mg tablet 80 mg PO DAILY #30 tab 09/11/20 03/26/21 03/25/21 Rx fenofibrate nanocrystallized 145 145 mg PO DAILY #30 tab 09/11/20 03/26/21 03/25/21 Rx mg tablet isosorbide mononitrate 60 mg 60 mg PO QAM #30 tab 09/11/20 03/26/21 03/25/21 Rx tablet,extended release 24 hr metoprolol tartrate 25 mg tablet See Rx Instructions .ROUTE 09/11/20 03/26/21 03/26/21 04:00 Rx .COMPLEX #60 tab amiodarone 200 mg tablet 200 mg PO DAILY #30 tab 09/13/20 03/26/21 03/25/21 Rx albuterol sulfate 90 mcg/actuation 2 puff INHALATION Q6H PRN 11/09/20 03/23/21 Unknown History aerosol inhaler Allergies Allergy/AdvReac Type Severity Reaction Status Date / Time influenza virus vaccine, Allergy u Verified 03/26/21 06:24 specific morphine Allergy Unknown Verified 03/26/21 06:24 Penicillins Allergy Unknown Verified 03/26/21 06:24 codeine AdvReac ADR-Chest Verified 03/26/21 06:24 Pain PFSH Acute PFSH: Medical History CAD (coronary artery disease) Cardiomyopathy HTN (hypertension) Hyperlipidemia Ischemic cardiomyopathy Family History Mother Seizure Social History Smoking and tobacco status: current every day smoker cigarettes Packs smoked per day: 0.5 Years cigarettes smoked: 53 Alcohol intake: former Year of sobriety/quit date alcohol: 1986 Vitals/I&O/Wt Last Vital Signs Temp 97.0 F L 03/26/21 06:30 Pulse 64 03/26/21 06:30 Resp 18 03/26/21 06:30 BP 118/75 03/26/21 06:30 Pulse Ox 92 03/26/21 06:30 Physical Exam 2 HENMT: COMMON NORMALS: normocephalic, atraumatic, hearing grossly normal bilaterally and external ears normal Neck/C-Spine: COMMON NORMALS: full ROM, no lymphadenopathy and No carotid bruits GENERAL: Yes trachea midline and No anterior neck swelling Chest: COMMONS NORMALS: normal inspection of the chest and normal palpation of entire chest wall Resp: COMMON NORMALS: normal respiratory effort and No use of accessory muscles EFFORT & INSPECTION: Yes able to speak in complete sentences, Yes symmetric chest movement and Yes prolonged expiratory phase Cardio: COMMON NORMALS: regular rate, regular rhythm, S1 normal heart sound present and No murmurs present (Cardio) Extremity: COMMON NORMALS: no clubbing, cyanosis or edema Data : 03/26/21 06:38 A&P Assessment and plan (1) Mass of right lung: Plan to proceed with bronchoscopy and mediastinoscopy as we continue to evaluate these concerning areas of right hilar mass with mediastinal adenopathy and increased activity on PET scan. Rationale for bronchoscopy and mediastinoscopy were carefully reviewed. Details and risks of the procedure were carefully and frankly discussed. Risks reviewed include the possibility of , stroke, heart attack, major bleeding, infection, pneumonia, pneumothorax requiring chest tube and hospitalization, inability to obtain the diagnosis requiring further procedures later. Organ failure, failure to benefit, prolonged hospital stay, pain after the procedure, need for further procedures, inability to complete the procedure, and possible need for long-term followup. All questions were answered. Appropriate consents have been provided for review and signature. If we are unable to obtain a diagnosis of malignancy, given our current findings, I would recommend consideration for needle directed liver biopsy after review with our radiology colleagues. Status: Acute Attestations Medical Necessity Statement*: Right hilar mass with adenopathy and increased activity on PET scan Time Spent in Patient Care: 16 - 35 minutes Coding Level of Care Code Acute Code And Test Clerk for Surinder Holcomb Diagnoses Mass of right lung R91.8
--- NOTE | 2021-03-26 06:49 | ANES.PREANE2 ---
Pre-Anesthetic Assessment Pre-Anesthetic Assessment: Height/Weight: Height 1.91 m Weight 114.759 kg Temp Pulse Resp BP Pulse Ox 97.0 F L 64 18 118/75 92 03/26/21 06:30 03/26/21 06:30 03/26/21 06:30 03/26/21 06:30 03/26/21 06:30 Preop Diagnosis: Right lung mass Proposed Procedure: Operation Date: 03/26/21 07:00 Proposed Procedures p Bronchoscopy(Not Applicable) - Stephan Wang MD s Mediastinoscopy(Not Applicable) - Stephan Wang MD Was Beta Tony taken within 24 hours: Yes Was Clonidine taken within 24 hours: N/A Social: Social History: No alcohol and No tobacco Exam: Pre-Anes Outpt Exam: alert, oriented x 3 and regular rate & rhythm Airway: Submandibular: WNL Cervical ROM: WNL MP: 2 Dentition: Chipped and Loose Additional comments: Poor dentition CV/HEM: CV/HEM: Afib, Arrythmia, CAD, CHF and HTN Comments: AICD GI: GI: GERD Metabolic: Metabolic: Hyperlipidemia and Morbid obesity Anesthetic Plan: ASA status: 3 Anesthesia: General Other: A.line Risk of > 500 ml blood loss (7ml/kg in children): No PFSH Anesthesia PFSH: Medical History CAD (coronary artery disease) Cardiomyopathy HTN (hypertension) Hyperlipidemia Ischemic cardiomyopathy Family History Mother Seizure Social History Smoking and tobacco status: current every day smoker cigarettes Packs smoked per day: 0.5 Years cigarettes smoked: 53 Alcohol intake: former Year of sobriety/quit date alcohol: 1986 Data Anesthesia CBC & Chem 7: 03/26/21 06:38 Cardiac Studies: No Data to Display
[2021-03-26] MEDS: vancomycin 1,000 MG in sodium chloride 0.9% 250 ML 250 MG IV (06:58)
[2021-03-26 07:02] LABS: Basophils # 0.2 10^3/uL (0.0-0.1); Basophils % 1.2 %; Eosinophils # 0.5 10^3/uL (0.0-0.8); Eosinophils % 3.7 %; Hematocrit 45.1 % (42.0-52.0); Hemoglobin 14.6 g/dL (11.7-16.6); Lymphocytes # 2.4 10^3/uL (0.8-4.8); Lymphocytes % 19.8 %; Mean Corpuscular HGB Conc 32.4 g/dL (30.0-36.0); Mean Corpuscular Hemoglobin 29.6 pg (28.0-34.0); Mean Corpuscular Volume 91.5 fL (80-94); Mean Platelet Volume 12.8 fL (7.4-10.4); Monocytes # 0.9 10^3/uL (0.2-0.9); Monocytes % 7.7 %; Neutrophils # 8.11 10^3/uL (1.8-7.7); Nucleated Red Blood Cells % 0 %; Platelet Count 347 10^3/cmm (130-400); Red Blood Count 4.93 10^6/uL (4.1-5.3); Red Cell Distribution Width 15.5 % (12.1-15.1); White Blood Count 12.1 10^3/uL (4.0-10.0)
[2021-03-26 07:04] LABS: INR 1.06 (0.8-1.2)
[2021-03-26 07:09] LABS: Anion Gap 15.6 (5-19); Blood Urea Nitrogen 22 mg/dL (8-23); Calcium 8.5 mg/dL (8.5-10.5); Carbon Dioxide 21 mmol/L (22-29); Chloride 105 mmol/L (98-107); Glomerular Filtration Rate 50.5 mL/min (90-130); Glucose 113 mg/dL (65-115); Osmolality Calculated 288 mOsm/kg (285-295); Potassium 4.6 mmol/L (3.5-5.1); Sodium 137 mmol/L (136-145)
[2021-03-26] MEDS: cetacaine Spray 5 gm Can 1 SPRAY TOPICAL (07:21)
[2021-03-26] MEDS: EPINEPHrine 1 mg/mL INJ XX (07:21)
--- NOTE | 2021-03-26 09:14 | XR_ITS ---
WS: [id number] Exam: XR chest 1V portable [id number] Date/Time of Exam: 03/26/2021 9:16 AM Reason For Exam: post mediastiinoscopy Comparison 04/10/2020. There is infiltrate and atelectasis in the right middle lobe. The left lung is clear. No pneumothorax . Cardiomediastinal structures are unremarkable for portable technique. A permanent cardiac pacer sup erimposes the left chest. No pleural effusions. Regional bony elements are intact. XR/XR chest 1V portable [id number] IMPRESSION: 1. Infiltrate and atelectasis in the right middle lobe.
--- NOTE | 2021-03-26 09:40 | SUR.PHASEI ---
906 PT AWAKES TO VOICE BUT QUICKLY BACK TO SLEEP WITH GOOD RESP NOTED, VSS ANTERIOR NECK DRESSING D/I PT HAS ART LINE TO RT WRIST FLUSHES EASILY BILAT SCDS ON AND WORKING. 924 PT SLEEPS IF NOT DISTURBED PT STATES ( I DIDNT SLEEP LAST NIGHT) GOOD RESP EFFORT ON MASK, PT SATS DROP IF ON RA PT ENCOURAGED TO COUGH AND DEEP BREATH, ART LINE FLUSHED AND PULLED WITH PRESSURE HELD TO SITE CATH INTACT 932 PRESSURE RELEASED SITE D/I PRESSURE DRESSING TO SITE WITH 2X2 AND COBAND PT PLACED ON 3LNC TO KEEPSATS OVER 90%, X RAYS DONE DR ORLANDO NOTIFIED PER ANNY BENÍTEZ RN.
--- NOTE | 2021-03-26 10:47 | PM.OP ---
Operative Report Date of procedure: March 26, 2021 Pre-op Diagnosis: Right lung mass Post-op diagnosis: same Procedure Done: 1. Flexible diagnostic bronchoscopy with biopsy from the bronchus intermedius 2. Mediastinoscopy with biopsy at station 4R Specimens removed/disposition: 1. Endobronchial biopsy from bronchus intermedius and right lower lobe bronchus 2. Mediastinal biopsy from station 4R Surgeon: Stephan Wang Anesthesia: General Complications: None: Post procedure chest x-ray reveals no pneumothorax or mediastinal widening Findings: Friable and hemorrhagic mucosa in the bronchus intermedius and right lower lobe with submucosal infiltration, highly suspicious for malignancy Firm infiltrated adenopathy station 4R for mediastinoscopy, suspicious for malignancy Condition: stable Disposition: PACU Brief History: Patient is a 65-year-old gentleman with right hilar mass along with mediastinal adenopathy and long history tobacco use, very worrisome for malignancy. PET scan also revealed increased activity in these areas. Due to transportation availability, it is been difficult to schedule Mr. Rios for surgery, that we were eventually able to proceed with assisting with transportation arrangements. Details and risk and rationale for the procedure was carefully and frankly discussed. Appropriate consents have been reviewed and signed. Procedure: 1. Flexible diagnostic bronchoscopy Procedure: Mr. Rios underwent general endotracheal anesthesia with an 8.0 endotracheal tube. With adequate anesthesia, flexible bronchoscope was inserted through the endotracheal tube. In a methodical fashion the trachea, meera, right main bronchus and associated lobar bronchi were inspected. In a similar fashion the left side was inspected. Secretions were cleared as needed to allow for adequate inspection. Normal saline was used to clear white secretions. Findings: Main meera and secondary meera were sharp. Branching anatomy was normal. There was no extrinsic compression. There was evidence for submucosal infiltration and studding in the right bronchus intermedius and right lower lobe bronchus. This area was quite hemorrhagic. Numerous biopsies were taken. Saline and epinephrine solution was utilized to confirm hemostasis post biopsy. Once completed, the scope was withdrawn under direct visualization confirming cleared secretions and no substantial bleeding. Endoscopic photos were taken as required to document pathology. We subsequently repositioned for planned mediastinoscopy. #2. Mediastinoscopy with biopsy at station 4R After positioning over protective padding, Mr. Rios was sterilely prepped and draped. A transverse incision was made above the sternal notch and carried down through the platysma. Cautery was utilized and large bridging veins were secured with clips and ligature prior to division. The pretracheal space was reached and enhanced the surgeon's finger. Mediastinoscope was inserted by direct vision and carefully advanced along the anterior plane of the trachea. Utilizing blunt dissection with suction, firm and thick mass at station 4R was dissected free. Aspiration was then carefully performed followed by biopsy under direct vision. Specimens were sent to pathology for permanent analysis. After adequate biopsy and tissue sampling, the patient was placed in reverse Trendelenburg position. Hemostasis was confirmed with the use of cautery, packing, and Surgicel. After confirmation of hemostasis, the scope was withdrawn under direct vision. The wound was then carefully irrigated and closed with 3-0 and 4-0 Vicryl suture. The skin was reapproximated in a subcuticular manner. Sterile dressing was applied. With equal breath sounds bilaterally, the patient was then awakened from anesthesia, extubated, and taken to the Postoperative Care Unit. Chest x-ray revealed no pneumothorax or mediastinal widening.
--- NOTE | 2021-03-26 13:36 | ANE.PACU2 ---
Inpatient post-anesthesia follow up: Airway intact: Yes Vital signs: Temperature 97.6 F Pulse Rate 60 Respiratory Rate 18 Blood Pressure 106/65 Pulse Oximetry 91 Oxygen Delivery Me thod Nasal Cannula Oxygen Flow Rate 3 Fraction of Inspir ed Oxygen Hydration adequate: Yes Nausea and vomiting: No Pain level: 2 Mental status: Baseline
== END 2021-03-26 11:25 | disposition home or self-care (01) ==
PROVIDERS: PCP Family Medicine; Visit Provider Thoracic Surgery (Cardiothoracic Vascular Surgery)
PROC: 0BJ08ZZ Inspection of Tracheobronchial Tree, Via Natural or Artificial Opening Endoscopic (ICD-10-PCS; CPT 31622; principal; 2021-03-26 07:00)
PROC: 0WJC4ZZ Inspection of Mediastinum, Percutaneous Endoscopic Approach (ICD-10-PCS; CPT 39401; 2021-03-26 07:00)
DX: R91.8 Other nonspecific abnormal finding of lung field (principal); Z79.82 Long term (current) use of aspirin; I25.10 Atherosclerotic heart disease of native coronary artery without angina pectoris; E78.5 Hyperlipidemia, unspecified; F17.210 Nicotine dependence, cigarettes, uncomplicated; I48.91 Unspecified atrial fibrillation; I11.0 Hypertensive heart disease with heart failure; I50.9 Heart failure, unspecified; E66.01 Morbid (severe) obesity due to excess calories; Z68.31 Body mass index [BMI] 31.0-31.9, adult
CPT/HCPCS: 31625; 39402; 36415; 71045; 80048; 85025; 85610; 86850; 86900; 86920; 88305; 93005; J0171; J1100; J2250; J2370; J2405; J2704; J2710; J3010; J3370; J3490; J7030; J7050

== ENCOUNTER 2021-07-19 15:23 | Emergency (ER) | payer MEDICARE, SELFPAY ==
[2021-07-19] VITALS (10 sets, daily range): BP systolic 103–123; BP diastolic 67–80; PULSE 74–85; RESP 16–31; TEMP 36.4; O2SAT 93–97; BMI 26.7
--- NOTE | 2021-07-19 15:38 | XR_ITS ---
WS: [id number] XR chest 1V portable [id number] REASON FOR EXAM: dyspnea/cough FINDINGS: Battery pack over the left upper anterior chest. Leads trans left subclavian to the right atrium and right ventricular apex. Large right pleural effusion has developed since the previous examination of 03/26/2021. Diffuse interstitial changes in the identifiable right lung. This may be the result of lung compressi on from the large effusion. Left hemithorax is clear. XR/XR chest 1V portable [id number] IMPRESSION: Large right pleural effusion. Condition of underlying lung unknown.
--- NOTE | 2021-07-19 15:38 | ECG_ITS ---
[facility] Test Date: 2021-07-19 Pat Name: Kike Rios Department: Room: Gender: Male [employer]: : 1955 Requested By: William Reagan Order Number: [id number] [place] MD: Elsi Ortiz M.D. Measurements Intervals [place] Rate: 83 P: 51 OK: 215 QRS: 73 QRSD: 112 T: 70 QT: 392 QTc: 461 Interpretive Statements SINUS RHYTHM WITH FIRST DEGREE AV BLOCK POSSIBLE ANTERIOR MYOCARDIAL INFARCTION , OF INDETERMINATE AGE [30 ms Q WAVE IN V3/V4, OR R < 0.2 mV IN V4] Compared to ECG 03/26/2021 06:34:18 First degree AV block now present Myocardial infarct finding now present Atrial-paced complex(es) or rhythm no longer present T-wave abnormality no longer present Possible ischemia no longer present Electronically Signed On 07-20-2021 9:37:40 CDT by Elsi Ortiz M.D. [id number]
--- NOTE | 2021-07-19 15:56 | W.ED.GENADLT ---
Documented by User: William Martino DO 07/20/21 07:16 HPI - General Adult General: Chief complaint: General Medical Stated complaint: GENERAL WEAKNESS/ FALL Time Seen by Provider: 07/19/21 15:26 History of Present Illness: HPI narrative: 58-year-old male presents emergency room reporting nausea vomiting for the last week he has been coughing up blood for the last 3 days. He fell this morning got stuck he says he was down for about 2 hours. He has also lost a significant amount of weight in the last several weeks. He has not had any rectal bleeding. He is obviously jaundiced in appearance at the bedside. He has been coughing and short of breath some as well along with diarrhea. He is not had any anosmia not noticed any orthopnea he denies any chest pain. Review his old record there is a concern of a right hilar mass he had a mediastinoscopy will the pathology came back negative he also had a questionable mass in his liver which is being scheduled for an ultrasound-guided biopsy that has not been completed yet. Onset (ago): minute(s) Location: chest Severity: moderate Relieving factors: none Exacerbating factors: none Associated symptoms: Reports decreased appetite, malaise, nausea and weakness; Deny chest pain, confusion, cough, diaphoresis, dyspnea, fevers/chills, headache(s), rash, palpitations, seizures, short of breath, syncope or vomiting Treatments prior to arrival: none Review of Systems Const: Reports: malaise; Denies: diaphoresis ENMT: Denies: throat pain, ear or mastoid pain, nasal discharge or nasal congestion Card: Denies: chest pain, palpitations or syncope Resp: Denies: dyspnea GI: Reports: nausea; Denies: vomiting : Denies: flank pain, dysuria, urinary frequency or urinary urgency Skin/Breast: Denies: rash Neuro: Denies: headache(s) or confusion PFS ED PFSH: Medical History CAD (coronary artery disease) Cardiomyopathy HTN (hypertension) Hyperlipidemia Ischemic cardiomyopathy Family History Mother Seizure Social History Alcohol intake: former Year of sobriety/quit date alcohol: 1986 Physical Exam Const: COMMON NORMALS: no acute distress GENERAL APPEARANCE: cooperative and comfortable ORIENTATION/CONSCIOUSNESS: Yes awake, Yes oriented to person, Yes oriented to place and Yes oriented to time HENMT: COMMON NORMALS: normocephalic, atraumatic and hearing grossly normal bilaterally HEAD & SCALP: normocephalic and atraumatic Eye: SCLERA: scleral abnormal (Scleral icterus) Laterality of scleral abnormality: positive bilateral Neck/C-Spine: COMMON NORMALS: no JVD Resp: AUSCULTATION: rales (R mid lung), breath sounds absent (Right lower lung) and diminished lung sounds (Left and right upper lung) Cardio: COMMON NORMALS: no JVD, regular rate, regular rhythm and No murmurs present (Cardio) RATE: regular rate RHYTHM: regular rhythm GI: COMMON NORMALS: Soft to palpation and No hepatosplenomegaly present AUSCULTATION: Yes normoactive bowel sounds PALPATION: Yes Soft to palpation, No Tenderness to palpation present (GI), No Guarding due to palpation present (GI) and Yes No hepatosplenomegaly present Extremity: COMMON NORMALS: normal to inspection, capillary refill normal, no clubbing, cyanosis or edema, no calf tenderness and no pedal edema Neuro: SENSORIUM/ORIENTATION: Yes oriented to person, Yes oriented to place and Yes oriented to time Skin: COMMON NORMALS: no rashes or lesions noted NARRATIVE SKIN EXAM: Severe jaundice GENERAL SKIN EXAM: no rashes or lesions noted Course Vital Signs: Vital signs: Vital Signs Temperature 97.6 F 07/19/21 15:30 Pulse Rate 76 07/19/21 22:19 Respiratory Rate 22 H 07/19/21 22:19 Blood Pressure 103/68 07/19/21 22:19 Pulse Oximetry 95 07/19/21 22:19 MDM - General Adult MDM Narrative: Medical decision making narrative: Initial assessment and evaluation. As well as review of records. Labs are pending care turned over to Dr. Peter at change of shift see his notes for final diagnosis and disposition. Lab Data: Labs: Lab Results 07/19/21 07/19/21 07/19/21 16:07 16:07 16:07 WBC 21.9 10^3/uL H 10 ^3/uL (4.0-10.0) RBC 5.42 10^6/uL H 10 ^6/uL (4.1-5.3) Hgb 16.0 g/dL g/dL (11.7-16.6) Hct 46.7 % % (42.0-52.0) MCV 86.2 fl fl (80-94) MCH 29.5 pg pg (28.0-34.0) MCHC 34.3 g/dL g/dL (30.0-36.0) RDW 18.2 % H % (12.1-15.1) Plt Count 330 10^3/cmm 10^3 /cmm (130-400) MPV 12.9 fL H fL (7.4-10.4) Neut % (Auto) 90.4 % % Lymph % (Auto) 3.8 % % [place] % (Auto) 4.6 % % Eos % (Auto) 0.0 % % Baso % (Auto) 0.2 % % Neut # (Auto) 19.84 10^3/uL H 1 0^3/uL (1.8-7.7) Lymph # (Auto) 0.8 10^3/uL 10^3/ uL (0.8-4.8) [place]ier # (Auto) 1.0 10^3/uL H 10^ 3/uL (0.2-0.9) Eos # (Auto) 0.0 10^3/uL 10^3/ uL (0.0-0.8) Baso # (Auto) 0.0 10^3/uL 10^3/ uL (0.0-0.1) Nucleated RBC % (a uto) 0 % % Nucleated RBCs # 0.0 /100WBC /100W BC PT INR Sodium 135 mmol/L L mmol /L (136-145) Potassium 5.9 mmol/L H mmol /L (3.5-5.1) Chloride 95 mmol/L L mmol/ L (98-107) Carbon Dioxide 16 mmol/L L mmol/ L (22-29) Anion Gap 29.9 H (5-19) BUN 112 mg/dL H* D mg /dL (8-23) Creatinine 11.7 mg/dL H* mg/ dL (0.7-1.2) GFR Calculation 4.3 mL/min L mL/m in (90-130) Glucose 80 mg/dL mg/dL (65-115) POC Glucose Calculated Osmolal ity 314 mOsm/kg H mOs m/kg (285-295) Lactic Acid 2.1 mmol/L mmol/L (0.5-2.2) Lactic Acid (Sepsi s) Calcium 7.7 mg/dL L mg/dL (8.5-10.5) Magnesium 2.4 mg/dL H mg/dL (1.7-2.3) Total Bilirubin 8.5 mg/dL H* mg/d L (0.15-1.2) AST 236 U/L H U/L (0-40) ALT 105 U/L H U/L (0-41) Alkaline Phosphata se 248 IU/L H IU/L (40-130) Ammonia Creatine Kinase 2250 U/L H* U/L (39-308) Troponin T Baselin e Troponin T 120 Min [place] Delta Troponin T Troponin T Hi Sens 6Hr Troponin T Hi Sens 6Hr Delta Total Protein 6.3 g/dL L g/dL (6.6-8.7) Albumin 2.4 g/dL L g/dL (3.5-5.2) Globulin 3.9 g/dL g/dL (1.3-4.6) Lipase 54 U/L U/L (13-60) Hepatitis A IgM Ab Hep Bs Antigen Hep B Core IgM Ab Hepatitis C Antibo dy SARS-CoV-2 Ag (Rap id) 07/19/21 07/19/21 07/19/21 16:07 16:07 17:52 WBC RBC Hgb Hct MCV MCH MCHC RDW Plt Count MPV Neut % (Auto) Lymph % (Auto) [place]alier % (Auto) Eos % (Auto) Baso % (Auto) Neut # (Auto) Lymph # (Auto) [place]ier # (Auto) Eos # (Auto) Baso # (Auto) Nucleated RBC % (a uto) Nucleated RBCs # PT 25.90 SECONDS H S ECONDS (12.1-14.9) INR 2.31 H (0.8-1.2) Sodium Potassium Chloride Carbon Dioxide Anion Gap BUN Creatinine GFR Calculation Glucose POC Glucose 98 mg/dL mg/dL (70-110) Calculated Osmolal ity Lactic Acid Lactic Acid (Sepsi s) Calcium Magnesium Total Bilirubin AST ALT Alkaline Phosphata se Ammonia Creatine Kinase Troponin T Baselin e 34 ng/L H ng/L (0-15) Troponin T 120 Min [place] Delta Troponin T Troponin T Hi Sens 6Hr Troponin T Hi Sens 6Hr Delta Total Protein Albumin Globulin Lipase Hepatitis A IgM Ab Hep Bs Antigen Hep B Core IgM Ab Hepatitis C Antibo dy SARS-CoV-2 Ag (Rap id) 07/19/21 07/19/21 07/19/21 18:20 18:20 18:20 WBC RBC Hgb Hct MCV MCH MCHC RDW Plt Count MPV Neut % (Auto) Lymph % (Auto) [place]ier % (Auto) Eos % (Auto) Baso % (Auto) Neut # (Auto) Lymph # (Auto) [place]ier # (Auto) Eos # (Auto) Baso # (Auto) Nucleated RBC % (a uto) Nucleated RBCs # PT INR Sodium Potassium Chloride Carbon Dioxide Anion Gap BUN Creatinine GFR Calculation Glucose POC Glucose Calculated Osmolal ity Lactic Acid Lactic Acid (Sepsi s) Calcium Magnesium Total Bilirubin AST ALT Alkaline Phosphata se Ammonia 24 umol/L umol/L (16-60) Creatine Kinase Troponin T Baselin e Troponin T 120 Min [place] 31.34 ng/L H ng/L (0-15) Delta Troponin T -2.66 ABS# L ABS# (0-10) Troponin T Hi Sens 6Hr Troponin T Hi Sens 6Hr Delta Total Protein Albumin Globulin Lipase Hepatitis A IgM Ab Non-reactive (Nonreactive) Hep Bs Antigen Non-reactive (Nonreactive) Hep B Core IgM Ab Non-reactive (Nonreactive) Hepatitis C Antibo dy Non-reactive (Nonreactive) SARS-CoV-2 Ag (Rap id) 07/19/21 07/19/21 07/19/21 19:07 20:20 21:03 WBC RBC Hgb Hct MCV MCH MCHC RDW Plt Count MPV Neut % (Auto) Lymph % (Auto) [place]ier % (Auto) Eos % (Auto) Baso % (Auto) Neut # (Auto) Lymph # (Auto) [place]ier # (Auto) Eos # (Auto) Baso # (Auto) Nucleated RBC % (a uto) Nucleated RBCs # PT INR Sodium Potassium Chloride Carbon Dioxide Anion Gap BUN Creatinine GFR Calculation Glucose POC Glucose Calculated Osmolal ity Lactic Acid Lactic Acid (Sepsi s) Cancelled Calcium Magnesium Total Bilirubin AST ALT Alkaline Phosphata se Ammonia Creatine Kinase Troponin T Baselin e Troponin T 120 Min [place] Delta Troponin T Troponin T Hi Sens 6Hr 32.07 ng/L H ng/L (0-15) Troponin T Hi Sens 6Hr Delta -1.93 ng/L L ng/L (0-12) Total Protein Albumin Globulin Lipase Hepatitis A IgM Ab Hep Bs Antigen Hep B Core IgM Ab Hepatitis C Antibo dy SARS-CoV-2 Ag (Rap id) Negative (Negative) 07/19/21 21:03 WBC RBC Hgb Hct MCV MCH MCHC RDW Plt Count MPV Neut % (Auto) Lymph % (Auto) [place]ier % (Auto) Eos % (Auto) Baso % (Auto) Neut # (Auto) Lymph # (Auto) [place] # (Auto) Eos # (Auto) Baso # (Auto) Nucleated RBC % (a uto) Nucleated RBCs # PT INR Sodium 139 mmol/L mmol/L (136-145) Potassium 5.6 mmol/L H mmol /L (3.5-5.1) Chloride 100 mmol/L mmol/L (98-107) Carbon Dioxide 19 mmol/L L mmol/ L (22-29) Anion Gap 25.6 H (5-19) BUN 104 mg/dL H* mg/d L (8-23) Creatinine 11.0 mg/dL H* mg/ dL (0.7-1.2) GFR Calculation 4.7 mL/min L mL/m in (90-130) Glucose 71 mg/dL mg/dL (65-115) POC Glucose Calculated Osmolal ity 319 mOsm/kg H mOs m/kg (285-295) Lactic Acid Lactic Acid (Sepsi s) Calcium 7.1 mg/dL L mg/dL (8.5-10.5) Magnesium Total Bilirubin AST ALT Alkaline Phosphata se Ammonia Creatine Kinase Troponin T Baselin e Troponin T 120 Min [place] Delta Troponin T Troponin T Hi Sens 6Hr Troponin T Hi Sens 6Hr Delta Total Protein Albumin Globulin Lipase Hepatitis A IgM Ab Hep Bs Antigen Hep B Core IgM Ab Hepatitis C Antibo dy SARS-CoV-2 Ag (Rap id) Critical Care Time Critical Care Time: Critical Care Time: Yes Total Critical Care Time: 30 Attestation: This case had a high probability of a clinically significant, sudden, or life threatening deterioration of this patient's condition which required my full and direct attention, intervention and personal management. Discharge Plan Discharge Patient Disposition: Xfer Short-Term Hosp Clinical Impression: Acute kidney injury, Elevated bilirubin, Lung mass, Liver metastasis Condition: Stable Referrals: Cesario Mccoy [Primary Care Provider] - Coding Level of Care Code ED Kids Activities Coach for Chg Fwd Exam Comprehensive Documented by User: Jersey Peter MD 07/19/21 20:57 HPI - General Adult General: Chief complaint: General Medical Stated complaint: GENERAL WEAKNESS/ FALL Time Seen by Provider: 07/19/21 15:26 PFSH ED PFSH: Medical History CAD (coronary artery disease) Cardiomyopathy HTN (hypertension) Hyperlipidemia Ischemic cardiomyopathy Family History Mother Seizure Social History Alcohol intake: former Year of sobriety/quit date alcohol: 1986 Course Vital Signs: Vital signs: Vital Signs Temperature 97.6 F 07/19/21 15:30 Pulse Rate 76 07/19/21 22:19 Respiratory Rate 22 H 07/19/21 22:19 Blood Pressure 103/68 07/19/21 22:19 Pulse Oximetry 95 07/19/21 22:19 MDM - General Adult MDM Narrative: Medical decision making narrative: Patient presents here with lung mass with liver metastases likely causing his liver failure with elevated bilirubin. He also has acute renal disease with hyperkalemia. I did speak to physician at [facility] patient is excepted and will transfer there for higher level of care needing GI specialty. Lab Data: Labs: Lab Results 07/19/21 07/19/21 07/19/21 16:07 16:07 16:07 WBC 21.9 10^3/uL H 10 ^3/uL (4.0-10.0) RBC 5.42 10^6/uL H 10 ^6/uL (4.1-5.3) Hgb 16.0 g/dL g/dL (11.7-16.6) Hct 46.7 % % (42.0-52.0) MCV 86.2 fl fl (80-94) MCH 29.5 pg pg (28.0-34.0) MCHC 34.3 g/dL g/dL (30.0-36.0) RDW 18.2 % H % (12.1-15.1) Plt Count 330 10^3/cmm 10^3 /cmm (130-400) MPV 12.9 fL H fL (7.4-10.4) Neut % (Auto) 90.4 % % Lymph % (Auto) 3.8 % % [place]alier % (Auto) 4.6 % % Eos % (Auto) 0.0 % % Baso % (Auto) 0.2 % % Neut # (Auto) 19.84 10^3/uL H 1 0^3/uL (1.8-7.7) Lymph # (Auto) 0.8 10^3/uL 10^3/ uL (0.8-4.8) Cavalier # (Auto) 1.0 10^3/uL H 10^ 3/uL (0.2-0.9) Eos # (Auto) 0.0 10^3/uL 10^3/ uL (0.0-0.8) Baso # (Auto) 0.0 10^3/uL 10^3/ uL (0.0-0.1) Nucleated RBC % (a uto) 0 % % Nucleated RBCs # 0.0 /100WBC /100W BC PT INR Sodium 135 mmol/L L mmol /L (136-145) Potassium 5.9 mmol/L H mmol /L (3.5-5.1) Chloride 95 mmol/L L mmol/ L (98-107) Carbon Dioxide 16 mmol/L L mmol/ L (22-29) Anion Gap 29.9 H (5-19) BUN 112 mg/dL H* D mg /dL (8-23) Creatinine 11.7 mg/dL H* mg/ dL (0.7-1.2) GFR Calculation 4.3 mL/min L mL/m in (90-130) Glucose 80 mg/dL mg/dL (65-115) POC Glucose Calculated Osmolal ity 314 mOsm/kg H mOs m/kg (285-295) Lactic Acid 2.1 mmol/L mmol/L (0.5-2.2) Lactic Acid (Sepsi s) Calcium 7.7 mg/dL L mg/dL (8.5-10.5) Magnesium 2.4 mg/dL H mg/dL (1.7-2.3) Total Bilirubin 8.5 mg/dL H* mg/d L (0.15-1.2) AST 236 U/L H U/L (0-40) ALT 105 U/L H U/L (0-41) Alkaline Phosphata se 248 IU/L H IU/L (40-130) Ammonia Creatine Kinase 2250 U/L H* U/L (39-308) Troponin T Baselin e Troponin T 120 Min [place] Delta Troponin T Troponin T Hi Sens 6Hr Troponin T Hi Sens 6Hr Delta Total Protein 6.3 g/dL L g/dL (6.6-8.7) Albumin 2.4 g/dL L g/dL (3.5-5.2) Globulin 3.9 g/dL g/dL (1.3-4.6) Lipase 54 U/L U/L (13-60) Hepatitis A IgM Ab Hep Bs Antigen Hep B Core IgM Ab Hepatitis C Antibo dy SARS-CoV-2 Ag (Rap id) 07/19/21 07/19/21 07/19/21 16:07 16:07 17:52 WBC RBC Hgb Hct MCV MCH MCHC RDW Plt Count MPV Neut % (Auto) Lymph % (Auto) [place] % (Auto) Eos % (Auto) Baso % (Auto) Neut # (Auto) Lymph # (Auto) [place] # (Auto) Eos # (Auto) Baso # (Auto) Nucleated RBC % (a uto) Nucleated RBCs # PT 25.90 SECONDS H S ECONDS (12.1-14.9) INR 2.31 H (0.8-1.2) Sodium Potassium Chloride Carbon Dioxide Anion Gap BUN Creatinine GFR Calculation Glucose POC Glucose 98 mg/dL mg/dL (70-110) Calculated Osmolal ity Lactic Acid Lactic Acid (Sepsi s) Calcium Magnesium Total Bilirubin AST ALT Alkaline Phosphata se Ammonia Creatine Kinase Troponin T Baselin e 34 ng/L H ng/L (0-15) Troponin T 120 Min [place] Delta Troponin T Troponin T Hi Sens 6Hr Troponin T Hi Sens 6Hr Delta Total Protein Albumin Globulin Lipase Hepatitis A IgM Ab Hep Bs Antigen Hep B Core IgM Ab Hepatitis C Antibo dy SARS-CoV-2 Ag (Rap id) 07/19/21 07/19/21 07/19/21 18:20 18:20 18:20 WBC RBC Hgb Hct MCV MCH MCHC RDW Plt Count MPV Neut % (Auto) Lymph % (Auto) [place]ier % (Auto) Eos % (Auto) Baso % (Auto) Neut # (Auto) Lymph # (Auto) [place] # (Auto) Eos # (Auto) Baso # (Auto) Nucleated RBC % (a uto) Nucleated RBCs # PT INR Sodium Potassium Chloride Carbon Dioxide Anion Gap BUN Creatinine GFR Calculation Glucose POC Glucose Calculated Osmolal ity Lactic Acid Lactic Acid (Sepsi s) Calcium Magnesium Total Bilirubin AST ALT Alkaline Phosphata se Ammonia 24 umol/L umol/L (16-60) Creatine Kinase Troponin T Baselin e Troponin T 120 Min [place] 31.34 ng/L H ng/L (0-15) Delta Troponin T -2.66 ABS# L ABS# (0-10) Troponin T Hi Sens 6Hr Troponin T Hi Sens 6Hr Delta Total Protein Albumin Globulin Lipase Hepatitis A IgM Ab Non-reactive (Nonreactive) Hep Bs Antigen Non-reactive (Nonreactive) Hep B Core IgM Ab Non-reactive (Nonreactive) Hepatitis C Antibo dy Non-reactive (Nonreactive) SARS-CoV-2 Ag (Rap id) 07/19/21 07/19/21 07/19/21 19:07 20:20 21:03 WBC RBC Hgb Hct MCV MCH MCHC RDW Plt Count MPV Neut % (Auto) Lymph % (Auto) [place] % (Auto) Eos % (Auto) Baso % (Auto) Neut # (Auto) Lymph # (Auto) [place] # (Auto) Eos # (Auto) Baso # (Auto) Nucleated RBC % (a uto) Nucleated RBCs # PT INR Sodium Potassium Chloride Carbon Dioxide Anion Gap BUN Creatinine GFR Calculation Glucose POC Glucose Calculated Osmolal ity Lactic Acid Lactic Acid (Sepsi s) Cancelled Calcium Magnesium Total Bilirubin AST ALT Alkaline Phosphata se Ammonia Creatine Kinase Troponin T Baselin e Troponin T 120 Min [place] Delta Troponin T Troponin T Hi Sens 6Hr 32.07 ng/L H ng/L (0-15) Troponin T Hi Sens 6Hr Delta -1.93 ng/L L ng/L (0-12) Total Protein Albumin Globulin Lipase Hepatitis A IgM Ab Hep Bs Antigen Hep B Core IgM Ab Hepatitis C Antibo dy SARS-CoV-2 Ag (Rap id) Negative (Negative) 07/19/21 21:03 WBC RBC Hgb Hct MCV MCH MCHC RDW Plt Count MPV Neut % (Auto) Lymph % (Auto) [place] % (Auto) Eos % (Auto) Baso % (Auto) Neut # (Auto) Lymph # (Auto) [place] # (Auto) Eos # (Auto) Baso # (Auto) Nucleated RBC % (a uto) Nucleated RBCs # PT INR Sodium 139 mmol/L mmol/L (136-145) Potassium 5.6 mmol/L H mmol /L (3.5-5.1) Chloride 100 mmol/L mmol/L (98-107) Carbon Dioxide 19 mmol/L L mmol/ L (22-29) Anion Gap 25.6 H (5-19) BUN 104 mg/dL H* mg/d L (8-23) Creatinine 11.0 mg/dL H* mg/ dL (0.7-1.2) GFR Calculation 4.7 mL/min L mL/m in (90-130) Glucose 71 mg/dL mg/dL (65-115) POC Glucose Calculated Osmolal ity 319 mOsm/kg H mOs m/kg (285-295) Lactic Acid Lactic Acid (Sepsi s) Calcium 7.1 mg/dL L mg/dL (8.5-10.5) Magnesium Total Bilirubin AST ALT Alkaline Phosphata se Ammonia Creatine Kinase Troponin T Baselin e Troponin T 120 Min [place] Delta Troponin T Troponin T Hi Sens 6Hr Troponin T Hi Sens 6Hr Delta Total Protein Albumin Globulin Lipase Hepatitis A IgM Ab Hep Bs Antigen Hep B Core IgM Ab Hepatitis C Antibo dy SARS-CoV-2 Ag (Rap id) Imaging Data^: CT Chest: Attestation: I personally reviewed and interpreted this imaging study as follows: Radiologist's impression: [address] [place] [address] CT Scan Report Signed Patient: Kike Rios Unit #: [id number] : 1955 Age/Sex: 66 / M ADM Date: 07/19/21 Loc: ER Room/Bed: Attending Dr: Ordering Provider/Ordering MD: William Martino DO Date of Service: 07/19/21 Procedure(s): CT chest abd pel wo con Accession Number(s): [id number] Report Number: [id number] PROCEDURE INFORMATION: Exam: CT Chest Without Contrast; Diagnostic Exam date and time: 07/19/2021 4:04 PM Age: 66 years old Clinical indication: Nausea and vomiting; Cough and shortness of breath; Prior surgery; Surgery type: Hernia, gb, pacemaker; Additional info: Large R peurel effusion, jaundice TECHNIQUE: Imaging protocol: Diagnostic computed tomography of the chest without contrast. Radiation optimization: All CT scans at this facility use at least one of these dose optimization techniques: automated exposure control; mA and/or kV adjustment per patient size (includes targeted exams where dose is matched to clinical indication); or iterative reconstruction. COMPARISON: CT chest w con* [id number] 10/10/2020 9:48 AM RADIATION DOSE METRICS: Total DLP (mGy-cm): 2113.25 FINDINGS: Tubes, catheters and devices: Left chest ICD. Lungs: Ground-glass attenuation changes and diffuse septal thickening throughout the right upper lobe. Extensive masslike consolidation noted throughout right middle lobe and right lower lobe. Endobronchial occlusion is noted starting at the distal right mainstem bronchus with extension of occlusive material into the right middle and lower lobe bronchi. Pleural spaces: Moderate volume right pleural effusion. Negative for pneumothorax. Heart: Mild multichamber cardiac enlargement. Negative for pericardial effusion. Mediastinal space: No mediastinal fluid collection. Diffuse increase in soft tissue density within the subcarinal space of the mediastinum and right perihilar region. Negative for thoracic esophageal wall thickening. Aorta: Unremarkable. No aortic aneurysm. Lymph nodes: Unremarkable. No enlarged lymph nodes. Bones/joints: Unremarkable. No acute fracture. Soft tissues: Unremarkable. Other findings: There is rightward mediastinal shift. IMPRESSION: 1. Extensive consolidation or mass of the right middle lobe and the right lower lobe with areas of endobronchial occlusion centrally beginning in the distal right mainstem bronchus. 2. Moderate volume right pleural effusion. PROCEDURE INFORMATION: Exam: CT Abdomen And Pelvis Without Contrast Exam date and time: 07/19/2021 4:04 PM Age: 66 years old Clinical indication: Nausea and vomiting; Cough and shortness of breath; Prior surgery; Surgery type: Hernia, gb, pacemaker; Additional info: Large R peurel effusion, jaundice TECHNIQUE: Imaging protocol: Computed tomography of the abdomen and pelvis without contrast. Radiation optimization: All CT scans at this facility use at least one of these dose optimization techniques: automated exposure control; mA and/or kV adjustment per patient size (includes targeted exams where dose is matched to clinical indication); or iterative reconstruction. COMPARISON: CT chest w con* [id number] 10/10/2020 9:48 AM RADIATION DOSE METRICS: Total DLP (mGy-cm): 2112.25 FINDINGS: Liver: Multiple liver masses which are substantially increased in size since 10/10/2020. Large mass encompasses substantial portion of the right hepatic lobe. The margins are difficult to define on noncontrast imaging. The lesion spans about 13 cm x 9.7 cm on axial series 2, image 54. Previously the mass was about 4.3 cm x 3.9 cm. Gallbladder and bile ducts: Cholecystectomy. Nondilated biliary system. Pancreas: Normal. No ductal dilation. Spleen: Normal. No splenomegaly. Adrenal glands: Normal. No mass. Kidneys and ureters: Mild severity symmetric bilateral hydroureteronephrosis. Stomach and bowel: Unremarkable. No obstruction. No mucosal thickening. Appendix: No evidence of appendicitis. Intraperitoneal space: Trace pelvic free fluid. Scattered small volume upper abdomen free fluid. No free intraperitoneal air. Vasculature: Scattered abdominal aorta atherosclerosis. Negative for aneurysm. Lymph nodes: Unremarkable. No enlarged lymph nodes. Urinary bladder: No significant bladder wall abnormality apparent. Reproductive: Unremarkable as visualized. Bones/joints: Severe compression fracture deformity of the L1 vertebrae is new from comparison. Unremarkable lumbar spine alignment.The lumbar spine demonstrates moderate discogenic and apophyseal joint degenerative changes at multiple levels. Soft tissues: Unremarkable. CT/CT chest abd pel wo con IMPRESSION: 1. Extensive intrahepatic metastatic disease. 2. Negative for biliary obstruction. 3. Third spacing of fluid. 4. Age indeterminate severe compression fracture deformity of L1. Radiation Dose CTDIVOL = (mGy): DLP = 2113.25 2113.25 (mGy-cm) Dictated By: Junito Torres Signed By: Junito Torres Signed Date/Time: 07/19/21 183 Critical Care Time Critical Care Time: Critical Care Time: Yes Total Critical Care Time: 35 Attestation: The high probability of a clinically significant, sudden or life threatening deterioration of the patient's [] system(s) required my full and direct attention, intervention and personal management. The critical care time is as shown. This time is in addition to time spent performing any reported procedures but includes the following: [x] Data and vital sign review and interpretation [x] Patient assessment, examination and intervention [x] Documentation [x] Medication orders and management Discharge Plan Discharge Patient Disposition: Xfer Short-Term Hosp Clinical Impression: Acute kidney injury, Elevated bilirubin, Lung mass, Liver metastasis Condition: Stable Referrals: Cesario Mccoy [Primary Care Provider] - Coding Level of Care Code ED Kids Activities Coach for Chg Fwd Exam Comprehensive
--- NOTE | 2021-07-19 16:04 | CTR_ITS ---
PROCEDURE INFORMATION: Exam: CT Chest Without Contrast; Diagnostic Exam date and time: 07/19/2021 4:04 PM Age: 66 years old Clinical indication: Nausea and vomiting; Cough and shortness of breath; Prior surgery; Surgery type: Hernia, gb, pacemaker; Additional info: Large R peurel effusion, jaundice TECHNIQUE: Imaging protocol: Diagnostic computed tomography of the chest without contrast. Radiation optimization: All CT scans at this facility use at least one of these dose optimization techniques: automated exposure control; mA and/or kV adjustment per patient size (includes targeted exams where dose is matched to clinical indication); or iterative reconstruction. COMPARISON: CT chest w con* [id number] 10/10/2020 9:48 AM RADIATION DOSE METRICS: Total DLP (mGy-cm): 2113.25 FINDINGS: Tubes, catheters and devices: Left chest ICD. Lungs: Ground-glass attenuation changes and diffuse septal thickening throughout the right upper lobe. Extensive masslike consolidation noted throughout right middle lobe and right lower lobe. Endobronchial occlusion is noted starting at the distal right mainstem bronchus with extension of occlusive material into the right middle and lower lobe bronchi. Pleural spaces: Moderate volume right pleural effusion. Negative for pneumothorax. Heart: Mild multichamber cardiac enlargement. Negative for pericardial effusion. Mediastinal space: No mediastinal fluid collection. Diffuse increase in soft tissue density within the subcarinal space of the mediastinum and right perihilar region. Negative for thoracic esophageal wall thickening. Aorta: Unremarkable. No aortic aneurysm. Lymph nodes: Unremarkable. No enlarged lymph nodes. Bones/joints: Unremarkable. No acute fracture. Soft tissues: Unremarkable. Other findings: There is rightward mediastinal shift. IMPRESSION: 1. Extensive consolidation or mass of the right middle lobe and the right lower lobe with areas of endobronchial occlusion centrally beginning in the distal right mainstem bronchus. 2. Moderate volume right pleural effusion. PROCEDURE INFORMATION: Exam: CT Abdomen And Pelvis Without Contrast Exam date and time: 07/19/2021 4:04 PM Age: 66 years old Clinical indication: Nausea and vomiting; Cough and shortness of breath; Prior surgery; Surgery type: Hernia, gb, pacemaker; Additional info: Large R peurel effusion, jaundice TECHNIQUE: Imaging protocol: Computed tomography of the abdomen and pelvis without contrast. Radiation optimization: All CT scans at this facility use at least one of these dose optimization techniques: automated exposure control; mA and/or kV adjustment per patient size (includes targeted exams where dose is matched to clinical indication); or iterative reconstruction. COMPARISON: CT chest w con* [id number] 10/10/2020 9:48 AM RADIATION DOSE METRICS: Total DLP (mGy-cm): 2113.25 FINDINGS: Liver: Multiple liver masses which are substantially increased in size since 10/10/2020. Large mass encompasses substantial portion of the right hepatic lobe. The margins are difficult to define on noncontrast imaging. The lesion spans about 13 cm x 9.7 cm on axial series 2, image 54. Previously the mass was about 4.3 cm x 3.9 cm. Gallbladder and bile ducts: Cholecystectomy. Nondilated biliary system. Pancreas: Normal. No ductal dilation. Spleen: Normal. No splenomegaly. Adrenal glands: Normal. No mass. Kidneys and ureters: Mild severity symmetric bilateral hydroureteronephrosis. Stomach and bowel: Unremarkable. No obstruction. No mucosal thickening. Appendix: No evidence of appendicitis. Intraperitoneal space: Trace pelvic free fluid. Scattered small volume upper abdomen free fluid. No free intraperitoneal air. Vasculature: Scattered abdominal aorta atherosclerosis. Negative for aneurysm. Lymph nodes: Unremarkable. No enlarged lymph nodes. Urinary bladder: No significant bladder wall abnormality apparent. Reproductive: Unremarkable as visualized. Bones/joints: Severe compression fracture deformity of the L1 vertebrae is new from comparison. Unremarkable lumbar spine alignment.The lumbar spine demonstrates moderate discogenic and apophyseal joint degenerative changes at multiple levels. Soft tissues: Unremarkable. CT/CT chest abd pel wo con IMPRESSION: 1. Extensive intrahepatic metastatic disease. 2. Negative for biliary obstruction. 3. Third spacing of fluid. 4. Age indeterminate severe compression fracture deformity of L1. Radiation Dose CTDIVOL = (mGy): DLP = 2113.25~2113.25 (mGy-cm)
--- NOTE | 2021-07-19 16:05 | PC.PHAR ---
pt states he takes care of his own medications-pt brought in medication bottles-pt didnt bring in the prednisone 10mg filled on 07/16/21 12d/s and doxycycline 100mg filled on 07/16/21 7d/s pt states he hasnt started taking them-
[2021-07-19 16:21] LABS: Basophils % 0.2 %; Hematocrit 46.7 % (42.0-52.0); Lymphocytes # 0.8 10^3/uL (0.8-4.8); Lymphocytes % 3.8 %; Mean Corpuscular HGB Conc 34.3 g/dL (30.0-36.0); Mean Corpuscular Hemoglobin 29.5 pg (28.0-34.0); Mean Corpuscular Volume 86.2 fl (80-94); Mean Platelet Volume 12.9 fL (7.4-10.4); Monocytes % 4.6 %; Neutrophils # 19.84 10^3/uL (1.8-7.7); Neutrophils % 90.4 %; Nucleated Red Blood Cells % 0 %; Platelet Count 330 10^3/cmm (130-400); Red Blood Count 5.42 10^6/uL (4.1-5.3); Red Cell Distribution Width 18.2 % (12.1-15.1); White Blood Count 21.9 10^3/uL (4.0-10.0)
[2021-07-19 16:35] LABS: Lactic Sepsis W/Reflex 2.1 mmol/L (0.5-2.2)
[2021-07-19 16:44] LABS: Alanine Aminotransferase 105 U/L (0-41); Albumin Level 2.4 g/dL (3.5-5.2); Alkaline Phosphatase 248 IU/L (40-130); Anion Gap 29.9 (5-19); Aspartate Amino Transferase 236 U/L (0-40); Calcium 7.7 mg/dL (8.5-10.5); Carbon Dioxide 16 mmol/L (22-29); Chloride 95 mmol/L (98-107); Globulin 3.9 g/dL (1.3-4.6); Glomerular Filtration Rate 4.3 mL/min (90-130); Glucose 80 mg/dL (65-115); Lipase 54 U/L (13-60); Magnesium 2.4 mg/dL (1.7-2.3); Osmolality Calculated 314 mOsm/kg (285-295); Potassium 5.9 mmol/L (3.5-5.1); Sodium 135 mmol/L (136-145); Total Protein 6.3 g/dL (6.6-8.7)
[2021-07-19 16:49] LABS: Troponin(5th) Baseline 34 ng/L (0-15)
[2021-07-19] MEDS: levofloxacin-dextrose 5 % 750 MG/150 ML PREMIX 100 MG IV (17:03)
[2021-07-19] MEDS: ondansetron 2 mg/ML SDV 2 mL 4 MG IVP (17:03)
[2021-07-19 17:06] LABS: Blood Urea Nitrogen 112 mg/dL (8-23); Creatine Phosphokinase 2250 U/L (39-308); Total Bilirubin 8.5 mg/dL (0.15-1.2)
--- NOTE | 2021-07-19 17:38 | ECG_ITS ---
[facility] Test Date: 2021-07-19 Pat Name: Kike Rios Department: Room: Gender: Male Technical Artist: : [id number] Requested By: William Reagan Order Number: [id number] [place] MD: Elsi Ortiz M.D. Measurements Intervals [place] Rate: 83 P: 56 GA: 214 QRS: 75 QRSD: 113 T: 67 QT: 402 QTc: 473 Interpretive Statements SINUS RHYTHM WITH FIRST DEGREE AV BLOCK MODERATE INTRAVENTRICULAR CONDUCTION DELAY [105+ ms QRS DURATION, 80+ ms Q/S IN V1/V2, NO Q AND 60+ ms R IN I/aVL/V5/V6] NONSPECIFIC ST & T-WAVE ABNORMALITY Compared to ECG 07/19/2021 15:58:45 Intraventricular conduction delay now present T-wave abnormality now present Myocardial infarct finding no longer present Electronically Signed On 07-20-2021 19:39:28 CDT by Elsi Ortiz M.D. [id number]
[2021-07-19 17:55] LABS: Glucose Point of Care 98 mg/dL (70-110)
[2021-07-19 18:03] LABS: Reflex Lactate Order REFLEX LACTIC ORDERD
[2021-07-19] MEDS: sodium chloride 0.9% 1,000 ML 999 ML IV (18:17)
[2021-07-19] MEDS: sodium bicarbonate 8.4% 1 mEq/mL 50mL Syr 50 MEQ IVP (18:18)
[2021-07-19] MEDS: calcium gluconate 0.1 gm/mL 10% SDV 10mL 1 GM IVP (18:20)
[2021-07-19 18:51] LABS: Ammonia 24 umol/L (16-60); Troponin 5 2HR 31.34 ng/L (0-15)
[2021-07-19 18:53] LABS: Troponin 5 2HR Delta -2.66 ABS# (0-10)
[2021-07-19] MEDS: dextrose 50% syringe 50 mL IVP (19:05)
[2021-07-19] MEDS: insulin regular-human 100 units/1 mL 10 UNIT IVP (19:13)
--- NOTE | 2021-07-19 19:21 | PC.NURSE ---
Report from SAHIL Cardona
--- NOTE | 2021-07-19 19:26 | PC.NURSE ---
Unable to provide urine specimen; will try again after more fluids infuse.
[2021-07-19 20:47] LABS: SARS Covid-2 Antigen Negative (Negative)
[2021-07-19 21:24] LABS: Hepatitis A Antibody IgM Non-Reactive (Nonreactive); Hepatitis B Core IgM Non-Reactive (Nonreactive); Hepatitis B Surface Antigen Non-Reactive (Nonreactive); Hepatitis C Virus Antibody Non-Reactive (Nonreactive)
[2021-07-19 21:34] LABS: Anion Gap 25.6 (5-19); Calcium 7.1 mg/dL (8.5-10.5); Carbon Dioxide 19 mmol/L (22-29); Chloride 100 mmol/L (98-107); Glomerular Filtration Rate 4.7 mL/min (90-130); Glucose 71 mg/dL (65-115); Osmolality Calculated 319 mOsm/kg (285-295); Potassium 5.6 mmol/L (3.5-5.1); Sodium 139 mmol/L (136-145)
[2021-07-19 21:36] LABS: Blood Urea Nitrogen 104 mg/dL (8-23)
[2021-07-19 21:52] LABS: Troponin 5 6HR 32.07 ng/L (0-15)
[2021-07-19 21:52] LABS: INR 2.31 (0.8-1.2)
[2021-07-19 21:54] LABS: Troponin 5 6HR Delta -1.93 ng/L (0-12)
== END 2021-07-19 22:23 | disposition short-term general hospital (02) ==
PROVIDERS: Family Medicine; Emergency Provider Emergency Medicine; PCP Family Medicine
DX: N17.9 Acute kidney failure, unspecified (principal); R91.8 Other nonspecific abnormal finding of lung field; C80.1 Malignant (primary) neoplasm, unspecified; C78.7 Secondary malignant neoplasm of liver and intrahepatic bile duct; E80.7 Disorder of bilirubin metabolism, unspecified; I25.10 Atherosclerotic heart disease of native coronary artery without angina pectoris; I10 Essential (primary) hypertension; E78.5 Hyperlipidemia, unspecified
CPT/HCPCS: 36415; 36416; 71045; 71250; 74176; 80048; 80053; 80074; 82140; 82550; 82962; 83605; 83690; 83735; 84484; 85025; 85610; 87040; 87426; 93005; 96365; 96375; 96376; 99291; J0610; J1815; J1956; J2405; J7030